=== PATIENT | male | born 1955 | race Caucasian/White ===

== ENCOUNTER 2016-07-16 13:45 | Inpatient (IN) | payer OTHER ==
[2016-07-16] MEDS ORDERED: SODIUM CHLORIDE 0.9% 1,000 ML IV ONE (14:56)
[2016-07-16 15:04] LABS: Basophils # (A) 0.1 k/uL (0-0.2); Basophils % (A) 1 %; CH 31.9; CHCM 33.3; Eosinophils # (A) 0.1 k/uL (0-0.7); Eosinophils % (A) 1 %; HCT 41.6 % (39.0-53.0); HDW 3.09; HGB 13.5 gm/dL (13.0-17.5); Luc # (Auto) 0.09; Luc % (Auto) 1; Lymphocytes # (A) 0.8 k/uL (1.0-4.8); Lymphocytes % (A) 10 %; MCH 31.4 pg (25.0-35.0); MCHC 32.6 g/dL (31.0-37.0); MCV 96.3 fL (80.0-100.0); Mean Platelet Volume 6.9; Monocytes # (A) 0.5 k/uL (0-1.0); Monocytes % (A) 6 %; Neutrophils # (A) 6.8 k/uL (1.3-7.7); Neutrophils % (A) 81 %; RBC 4.32 m/uL (4.30-5.90); RDW 15.1 % (11.5-15.5); WBC 8.4 k/uL (3.8-10.6)
[2016-07-16 15:16] LABS: ALT 21 U/L (21-72); AST 20 U/L (17-59); Alkaline Phosphatase 58 U/L (38-126); Anion Gap 15 mmol/L; Blood Urea Nitrogen 34 mg/dL (9-20); Calcium 9.1 mg/dL (8.4-10.2); Carbon Dioxide 28 mmol/L (22-30); Chloride 103 mmol/L (98-107); Glucose 113 mg/dL (74-99); Non-African American GFR(MDRD) >60 (>60 ml/min/1.73 sqM); Potassium 3.6 mmol/L (3.5-5.1); Sodium 146 mmol/L (137-145); Total Bilirubin 0.5 mg/dL (0.2-1.3)
--- NOTE | 2016-07-16 15:32 | XR ---
EXAMINATION TYPE: XR chest 2V DATE OF EXAM: 07/16/2016 3:28 PM COMPARISON: 10/22/2009 HISTORY: Seizure. Unresponsive. TECHNIQUE: Frontal and lateral views of the chest are obtained. FINDINGS: There is patchy consolidation in the left lower lobe. There is no heart failure. Heart siz e is fairly normal. There is apparent ventriculoperitoneal shunt catheter. There is small left pleura l effusion. Right lung is clear. IMPRESSION: There is new patchy left lower lobe pneumonia and pleural fluid compared to last exam.
[2016-07-16 15:39] LABS: Appearance,Urine Cloudy (Clear); Bacteria,Urine Moderate /hpf; Bilirubin,Urine Negative (Negative); Glucose,Urine (UA) Negative (Negative); Ketones,Urine Negative (Negative); Leukocyte Esterase,Urine Large (Negative); Mucus,Urine Rare /hpf; Nitrite,Urine Positive (Negative); Particle Count 28484; Protein,Urine 1+ (Negative); RBC,Urine 8 /hpf (0-5); Specific Gravity,Urine 1.012 (1.001-1.035); Squamous Epithelial Cell,Urine <1 /hpf (0-4); UA Billing (MACRO vs. MICRO) MICRO; Urobilinogen,Urine <2.0 mg/dL (<2.0); WBC,Urine 102 /hpf (0-5)
--- NOTE | 2016-07-16 15:52 | ED ---
General Adult HPI - General Chief complaint: Seizure Stated complaint: seizure Source: old records reviewed Mode of arrival: EMS - History of Present Illness Initial comments: 61-year-old male with past medical history of CVA/TIA, HLD, HTN, memory impairment, seizure disorder (on depakote & topiramate), hydrocephalus with shunt, left-sided weakness, presenting via EMS for seizure. Patient is a resident of [facility] and had a witnessed seizure that lasted about 20 mins on and off per staff. EMS arrived, pt was still seizing and gave the pt 10 mg Versed and upon arrival the pt was sleeping with snoring respirations but maintaining his airway when sitting up. - Related Data Home Medications Medication Instructions Recorded Confirmed Fluticasone Nasal [place] [Flonase 1 spray EA NOSTRIL HS 08/21/14 07/16/16 Nasal [place]] Glycerin/Propylene Glycol 1 drop BOTH EYES BID PRN 08/21/14 07/16/16 [Artificial Tears Drops] Hydrochlorothiazide 25 mg PO DAILY 08/21/14 07/16/16 Hydrocodone/Acetaminophen 1 tab PO Q6H PRN 08/21/14 07/16/16 [Hydrocodon-Acetaminophn 10-325] [place]-3 Fatty Acids [[place]-3] 1,000 mg PO BID 08/21/14 07/16/16 Pravastatin Sodium 40 mg PO HS 08/21/14 07/16/16 Sennosides-Docusate Sodium 2 tab PO DAILY PRN 08/21/14 07/16/16 [Senokot-S] Terazosin [Hytrin] 1 mg PO HS 08/21/14 07/16/16 Allopurinol [Zyloprim] 300 mg PO DAILY 07/16/16 07/16/16 Divalproex Sodium [Depakote 500 mg PO DAILY 07/16/16 07/16/16 Sprinkle] Divalproex Sprinkle [Depakote 375 mg PO HS 07/16/16 07/16/16 Sprinkle] HYDROcodone/APAP 10-325MG [[place] 1 tab PO BID@0900,2100 07/16/16 07/16/16 10-325] Magnesium Hydroxide [Milk of 2,400 mg PO DAILY PRN 07/16/16 07/16/16 Magnesia] Metoprolol Tartrate [Lopressor] 12.5 mg PO BID 07/16/16 07/16/16 PARoxetine [Paxil] 20 mg PO DAILY 07/16/16 07/16/16 Rivastigmine Tartrate [Exelon] 3 mg PO BID 07/16/16 07/16/16 Tolnaftate [Tinactin] 1 applic TOPICAL HS 07/16/16 07/16/16 Topiramate [Topamax] 25 mg PO BID 07/16/16 07/16/16 Allergies Allergy/AdvReac Type Severity Reaction Status Date / Time No Known Allergies Allergy Verified 07/16/16 13:55 Review of Systems ROS Statement: Those systems with pertinent positive or pertinent negative responses have been documented in the HPI. ROS Other: All systems not noted in ROS Statement are negative. Constitutional: Denies: fever, chills, weakness Eyes: Denies: eye pain, eye discharge, vision change ENT: Denies: ear pain, throat pain Respiratory: Denies: cough, dyspnea Cardiovascular: Denies: chest pain, palpitations Endocrine: Denies: fatigue, polydipsia, polyuria Gastrointestinal: Denies: abdominal pain, nausea, vomiting, diarrhea, constipation Genitourinary: Denies: urgency, dysuria, frequency, hematuria, discharge Musculoskeletal: Denies: back pain, arthralgia, myalgia Skin: Denies: rash, lesions Neurological: Reports: other (seizures). Denies: headache, weakness, numbness, paresthesias Psychiatric: Denies: anxiety, depression Hematological/Lymphatic: Denies: easy bleeding, easy bruising Past Medical History Past Medical History: CVA/TIA, Hyperlipidemia, Hypertension, Memory Impairment, Seizure Disorder Additional Past Medical History / Comment(s): hydrocephalus with shunt, focal seizure, left sided weakness History of Any Multi-Drug Resistant Organisms: None Reported Past Surgical History: No Surgical Hx Reported Past Anesthesia/Blood Transfusion Reactions: Unable to Obtain Past Psychological History: Anxiety, Bipolar Smoking Status: Unknown if ever smoked Past Alcohol Use History: None Reported Past Drug Use History: None Reported General Exam General appearance: in no apparent distress, obese, other (sleeping) Head exam: Present: atraumatic, normocephalic, normal inspection Eye exam: Present: normal appearance, PERRL, EOMI. Absent: scleral icterus, conjunctival injection, periorbital swelling ENT exam: Present: normal exam, mucous membranes moist Neck exam: Present: normal inspection. Absent: tenderness, meningismus, lymphadenopathy Respiratory exam: Present: normal lung sounds bilaterally. Absent: respiratory distress, wheezes, rales, rhonchi, stridor Cardiovascular Exam: Present: regular rate, normal rhythm, normal heart sounds. Absent: systolic murmur, diastolic murmur, rubs, gallop, clicks GI/Abdominal exam: Present: soft, normal bowel sounds. Absent: distended, tenderness, guarding, rebound, rigid Rectal exam: Present: deferred Extremities exam: Present: normal inspection, full ROM, normal capillary refill. Absent: tenderness, pedal edema, joint swelling, calf tenderness Back exam: Present: normal inspection Neurological exam: Present: other (pt unresponsive but maintaining airway) Psychiatric exam: Present: normal affect, normal mood Skin exam: Present: warm, dry, intact, normal color. Absent: rash Course Vital Signs 07/16/16 07/16/16 07/16/16 13:48 15:30 16:56 Temperature 99 F 97.9 F Pulse Rate 93 65 82 Pulse Rate [ Panel Assembler ] Respiratory 16 18 16 Rate Blood Pressure 113/70 132/72 131/69 Blood Pressure [Right Arm] O2 Sat by Pulse 94 L 94 L Oximetry 07/16/16 07/16/16 07/16/16 17:47 18:00 18:16 Temperature 94.2 F L Pulse Rate 86 96 Pulse Rate [ 60 Panel Assembler ] Respiratory 25 H 14 14 Rate Blood Pressure 124/70 162/96 Blood Pressure 120/72 [Right Arm] O2 Sat by Pulse 82 L 94 L Oximetry 07/16/16 07/16/16 07/16/16 18:30 18:45 19:00 Temperature 97.4 F L Pulse Rate 92 70 72 Pulse Rate [ Panel Assembler ] Respiratory 16 16 16 Rate Blood Pressure 153/89 109/71 123/72 Blood Pressure [Right Arm] O2 Sat by Pulse 100 100 100 Oximetry 07/16/16 07/16/16 19:13 19:41 Temperature Pulse Rate 72 63 Pulse Rate [ Panel Assembler ] Respiratory 16 20 Rate Blood Pressure 113/69 102/56 Blood Pressure [Right Arm] O2 Sat by Pulse 100 100 Oximetry EKG Findings - EKG Comments: EKG Findings:: Sinus rhythm with PVCs, LAD, and nonspecific intraventricular block. Ventricular rate 93, LAURA 196, QRS 134, QT/QTC 394/489. EKG similar to previous. Procedures - Intubation Paralytic: Succinylcholine Laryngoscope: Benjamin Size: 4 Assist Device Used: other (gliding scope) ET Tube Size: 8 ET Tube Uncuffed: No Tube Secured Depth (cm): 22 Tube Secured Location: lips Tube Placement Confirmation: visualized tube passing through cords, equal breath sounds bilaterally, no breath sounds over epigastrium, confirmation by capnometry Patient Tolerated Procedure: well Intubation Complications: difficult intubation Additional Comments: confirmed with chest x-ray Medical Decision Making - Medical Decision Making 61-year-old male with past medical history of CVA/TIA, seizures on Depakote and Topamax and worsening dementia presented for evaluation of breakthrough seizure. The home where he is staying states that he had a seizure for about 5 minutes it resolved and then he had another one for 5 minutes which also resolved and he sees until EMS arrived. EMS provided 10 mg of Versed with resolution of seizure and the patient has been sleeping since. On physical examination the patient is unable to be woken up although is maintaining his airway with an oxygen saturation around 90% on 2 L oxygen. No other abnormalities on physical exam are noted. This is likely a breakthrough seizure and will obtain labs, ekg, cxr, ua. Will also provide IVF and continue to try waking the pt. Labs significant for urinary tract infection and will treat with a first dose of Rocephin here in the ED. Depakote levels within normal limits. There is a mildly elevated troponin although this is likely due to the seizure activity and we'll continue to trend. No intervention indicated at this time. The patient continues to be nonresponsive and continues to maintain his airway. We' ll obtain CT head to rule out any other etiology. This is still likely the postictal phase and also the result of 10 mg Versed. Discussed the case with Dr. Banda who accepted the admission without any further request. Admission order placed and bed request submitted. 6:37 PM patient became hypoxic to roughly 80% on nasal cannula. Nonrebreather was applied without any increase in oxygen saturation and the patient was moved to room 19 for sedation and intubation. Intubation required multiple attempts but was successful. We'll confirm with chest x-ray and placed patient in restraints, apply Cid, maintain sedation with propofol. Discussed the patient with Dr. Banda who agreed with plan to consult Dr. Watters who accepted consult with request to start vanco and zosyn. Admission order replaced and orders placed. 7:09 PM ETT placement confirmed. - Lab Data Result diagrams: 07/16/16 14:57 07/16/16 14:57 Lab Results 07/16/16 07/16/16 07/16/16 Range/Units 14:57 14:57 14:57 WBC 8.4 (3.8-10.6) k/uL RBC 4.32 (4.30-5.90) m/uL Hgb 13.5 (13.0-17.5) gm/dL Hct 41.6 (39.0-53.0) % MCV 96.3 (80.0-100.0) fL MCH 31.4 (25.0-35.0) pg MCHC 32.6 (31.0-37.0) g/dL RDW 15.1 (11.5-15.5) % Plt Count 133 L D (150-450) k/uL Neutrophils % 81 % Lymphocytes % 10 % Monocytes % 6 % Eosinophils % 1 % Basophils % 1 % Neutrophils # 6.8 (1.3-7.7) k/uL Lymphocytes # 0.8 L (1.0-4.8) k/uL Monocytes # 0.5 (0-1.0) k/uL Eosinophils # 0.1 (0-0.7) k/uL Basophils # 0.1 (0-0.2) k/uL Sodium 146 H (137-145) mmol/L Potassium 3.6 (3.5-5.1) mmol/L Chloride 103 (98-107) mmol/L Carbon Dioxide 28 (22-30) mmol/L Anion Gap 15 mmol/L BUN 34 H (9-20) mg/dL Creatinine 1.00 (0.66-1.25) mg/dL Est GFR (MDRD) Af Amer >60 (>60 ml/min/1.73 sqM) Est GFR (MDRD) Non-Af >60 (>60 ml/min/1.73 sqM) Glucose 113 H (74-99) mg/dL Calcium 9.1 (8.4-10.2) mg/dL Magnesium 1.8 (1.6-2.3) mg/dL Total Bilirubin 0.5 (0.2-1.3) mg/dL AST 20 (17-59) U/L ALT 21 (21-72) U/L Alkaline Phosphatase 58 (38-126) U/L Troponin I (0.000-0.034) ng/mL NT-Pro-B Natriuret Pep pg/mL Total Protein 8.0 (6.3-8.2) g/dL Albumin 4.2 (3.5-5.0) g/dL Lipase 161 (23-300) U/L Urine Color Urine Appearance (Clear) Urine pH (5.0-8.0) Ur Specific [place] (1.001-1.035) Urine Protein (Negative) Urine Glucose (UA) (Negative) Urine Ketones (Negative) Urine Blood (Negative) Urine Nitrite (Negative) Urine Bilirubin (Negative) Urine Urobilinogen (<2.0) mg/dL Ur Leukocyte Esterase (Negative) Urine RBC (0-5) /hpf Urine WBC (0-5) /hpf Urine WBC Clumps (None) /hpf Ur Squamous Epith Cells (0-4) /hpf Urine Bacteria (None) /hpf Hyaline Casts (0-2) /lpf Urine Mucus (None) /hpf Urine Yeast (Budding) (None) /hpf Valproic Acid 56.4 ug/mL 07/16/16 07/16/16 07/16/16 Range/Units 15:00 15:00 15:13 WBC (3.8-10.6) k/uL RBC (4.30-5.90) m/uL Hgb (13.0-17.5) gm/dL Hct (39.0-53.0) % MCV (80.0-100.0) fL MCH (25.0-35.0) pg MCHC (31.0-37.0) g/dL RDW (11.5-15.5) % Plt Count (150-450) k/uL Neutrophils % % Lymphocytes % % Monocytes % % Eosinophils % % Basophils % % Neutrophils # (1.3-7.7) k/uL Lymphocytes # (1.0-4.8) k/uL Monocytes # (0-1.0) k/uL Eosinophils # (0-0.7) k/uL Basophils # (0-0.2) k/uL Sodium (137-145) mmol/L Potassium (3.5-5.1) mmol/L Chloride (98-107) mmol/L Carbon Dioxide (22-30) mmol/L Anion Gap mmol/L BUN (9-20) mg/dL Creatinine (0.66-1.25) mg/dL Est GFR (MDRD) Af Amer (>60 ml/min/1.73 sqM) Est GFR (MDRD) Non-Af (>60 ml/min/1.73 sqM) Glucose (74-99) mg/dL Calcium (8.4-10.2) mg/dL Magnesium (1.6-2.3) mg/dL Total Bilirubin (0.2-1.3) mg/dL AST (17-59) U/L ALT (21-72) U/L Alkaline Phosphatase (38-126) U/L Troponin I 0.047 H* (0.000-0.034) ng/mL NT-Pro-B Natriuret Pep 1200 pg/mL Total Protein (6.3-8.2) g/dL Albumin (3.5-5.0) g/dL Lipase (23-300) U/L Urine Color Yellow Urine Appearance Cloudy (Clear) Urine pH 6.0 (5.0-8.0) Ur Specific [place] 1.012 (1.001-1.035) Urine Protein 1+ H (Negative) Urine Glucose (UA) Negative (Negative) Urine Ketones Negative (Negative) Urine Blood Small H (Negative) Urine Nitrite Positive (Negative) Urine Bilirubin Negative (Negative) Urine Urobilinogen <2.0 (<2.0) mg/dL Ur Leukocyte Esterase Large H (Negative) Urine RBC 8 H (0-5) /hpf Urine WBC 102 H (0-5) /hpf Urine WBC Clumps Few H (None) /hpf Ur Squamous Epith Cells <1 (0-4) /hpf Urine Bacteria Moderate H (None) /hpf Hyaline Casts 1 (0-2) /lpf Urine Mucus Rare H (None) /hpf Urine Yeast (Budding) Occasional H (None) /hpf Valproic Acid ug/mL Disposition Clinical Impression: Generalized seizure, UTI (urinary tract infection), Altered mental state Disposition: ADMITTED IP TO THIS [facility] Decision to Admit Reason: Admit from EC Decision Date: 07/16/16 Decision Time: 16:55
[2016-07-16] MEDS ORDERED: NALOXONE 0.4 MG/ML 1 ML VIAL IV PRN (16:57)
[2016-07-16] MEDS ORDERED: ONDANSETRON 4 MG/2 ML VIAL IVP PRN (16:57)
--- NOTE | 2016-07-16 16:59 | CT ---
EXAMINATION TYPE: CT brain wo con DATE OF EXAM: 07/16/2016 4:54 PM COMPARISON: 08/20/2014 HISTORY: Seizure today. Unresponsive. CT DLP: 1126.5 mGycm Automated exposure control for dose reduction was used. FINDINGS: There is some cerebral cortical atrophy. There is no mass effect nor midline shift. There is no sign of intracranial hemorrhage. There is a ventricular shunt catheter with the tip in the left lateral ve ntricle. There is patchy hypodensity in the periventricular white matter. There is no hydrocephalus. The calvarium is intact. IMPRESSION: Cerebral atrophy and chronic small vessel ischemia. No change compared to old exam. No acute abnormal ity. Previous craniotomies.
[2016-07-16] MEDS ORDERED: HYDROcodone/APAP 10-325MG 1 EACH TAB PO PRN (17:03)
[2016-07-16] MEDS ORDERED: MAGNESIUM HYDROXIDE 2,400 MG/10 ML CUP PO PRN (17:03)
[2016-07-16] MEDS ORDERED: SENNOSIDES-DOCUSATE SODIUM 1 EACH TAB PO PRN (17:03)
[2016-07-16] MEDS ORDERED: ARTIFICIAL TEARS-HYPROMELLOSE DROPS 15 ML BTL BOTH EYES PRN (17:03)
[2016-07-16] MEDS: SODIUM CHLORIDE 0.9% 1,000 ML IV SCH (17:30)
[2016-07-16] MEDS ORDERED: SUCCINYLCHOLINE CHLORIDE VIAL 200 MG/10 ML VIAL IV STA (18:15)
[2016-07-16] MEDS: PROPOFOL 500 MG in EMPTY BAG 1 BAG IV SCH ×3 (18:18→23:44)
[2016-07-16] MEDS ORDERED: IV VANCOMYCIN PER PHARMACY 1 EACH MISC MISCELLANE PRN (18:39)
--- NOTE | 2016-07-16 18:52 | XR ---
EXAMINATION TYPE: XR chest 1V portable DATE OF EXAM: 07/16/2016 6:47 PM COMPARISON: 07/16/2016 at 3:30 PM HISTORY: Check tube placement TECHNIQUE: Single frontal view of the chest is obtained. FINDINGS: Endotracheal tube is in good position. There is a nasogastric tube. There is a right jugul ar catheter with the tip probably in the right atrium. There is no pneumothorax. There is some patchy infiltrate in the left lower lobe. IMPRESSION: Tubing appears in good position. Left lower lobe infiltrate is unchanged compared to rec ent exam.
[2016-07-16] MEDS ORDERED: VANCOMYCIN 1,750 MG in SODIUM CHLORIDE 0.9% 250 ML IVPB ONE (20:30)
[2016-07-16] MEDS ORDERED: EMPTY BAG 1 BAG ONE (20:48)
[2016-07-16 20:51] LABS: Glucose,Whole Blood 138 mg/dL (75-99)
[2016-07-16] MEDS ORDERED: TOPIRAMATE 25 MG TAB PO SCH (21:00)
[2016-07-16] MEDS ORDERED: NON-FORMULARY DRUG (Omega-3 Fatty Acids [Omega-3] 1,000 MG) PO SCH (21:00)
[2016-07-16] MEDS ORDERED: DIVALPROEX SPRINKLE 125 MG CAP.SPRINK PO SCH (21:00)
[2016-07-16] MEDS ORDERED: IPRATROPIUM-ALBUTEROL 3 ML NEB INHALATION PRN (21:48)
[2016-07-16] MEDS ORDERED: HYDROmorphone 1 MG/ML 1 ML SYRINGE IVP PRN (21:48)
[2016-07-16 22:00] LABS: ABG PCO2 40 mmHg (35-45); ABG PH 7.38 (7.35-7.45)
[2016-07-16 22:01] LABS: ABG Base Excess -1.6 mmol/L; ABG HCO3 23 mmol/L (21-25); ABG PO2 130 mmHg (83-108); ABG TCO2 24 mmol/L (19-24)
[2016-07-16] MEDS ORDERED: VALPROATE SODIUM 500 MG in SODIUM CHLORIDE 0.9% 50 ML IVPB STA (22:04)
[2016-07-16] MEDS: EMPTY BAG 1 BAG ONE (22:11)
[2016-07-16] MEDS: CLOTRIMAZOLE 1% CREAM 15 GM TUBE TOPICAL SCH (22:12)
[2016-07-16] MEDS: FLUTICASONE 50MCG/SPRAY NASAL 16GM EA NOSTRIL SCH (22:13)
[2016-07-16] MEDS: HYDROcodone/APAP 10-325MG 1 EACH TAB PO SCH (22:13)
[2016-07-16] MEDS: DONEPEZIL 10 MG TAB PO SCH (22:13)
[2016-07-16] MEDS: PRAVASTATIN SODIUM 40 MG TAB PO SCH (22:14)
[2016-07-16] MEDS: TERAZOSIN 1 MG CAP PO SCH (22:14)
[2016-07-16] MEDS: METOPROLOL TARTRATE 12.5 MG TAB PO SCH (22:14)
[2016-07-16] MEDS ORDERED: Magnesium Replacement Protocol 1 EACH MISC MISCELLANE PRN (22:37)
[2016-07-16] MEDS ORDERED: Potassium Replacement Protocol 1 EACH MISC MISCELLANE PRN (22:37)
[2016-07-16] MEDS ORDERED: POTASSIUM CHLORIDE ORAL LIQUID 40 MEQ/30 ML CUP NG-TUBE SCH (23:00)
[2016-07-16] MEDS: MAGNESIUM SULFATE-D5W PMX 1 GM in DEXTROSE/WATER 1 100ML.BAG IVPB SCH ×2 (23:11→23:43)
[2016-07-16] MEDS: TOPIRAMATE 25 MG TAB PO SCH (23:11)
[2016-07-16] MEDS: HEPARIN SODIUM,PORCINE 5,000 UNIT/ML 1 ML VIAL SQ SCH (23:43)
[2016-07-16] MEDS: PIPERACILLIN-TAZOBACTAM 3.375 GM in DEXTROSE/WATER 1 50ML.BAG IVPB SCH (23:44)
[2016-07-17] MEDS: IPRATROPIUM-ALBUTEROL 3 ML NEB INHALATION SCH ×7 (00:15→23:27)
[2016-07-17] MEDS ORDERED: EMPTY BAG 1 BAG ONE ×3 (02:12→09:08)
[2016-07-17] MEDS: PROPOFOL 500 MG in EMPTY BAG 1 BAG IV SCH ×6 (02:20→21:45)
[2016-07-17] MEDS: SODIUM CHLORIDE 0.9% 1,000 ML IV SCH ×3 (03:42→23:33)
[2016-07-17 05:37] LABS: Basophils % (A) 0 %; CH 31.9; CHCM 32.4; Eosinophils # (A) 0.1 k/uL (0-0.7); Eosinophils % (A) 1 %; HCT 37.9 % (39.0-53.0); HDW 2.88; HGB 12.1 gm/dL (13.0-17.5); Luc # (Auto) 0.12; Luc % (Auto) 1; Lymphocytes # (A) 0.7 k/uL (1.0-4.8); Lymphocytes % (A) 8 %; MCH 31.6 pg (25.0-35.0); MCHC 31.9 g/dL (31.0-37.0); MCV 99.1 fL (80.0-100.0); Macrocytosis Slight; Mean Platelet Volume 6.9; Monocytes # (A) 0.7 k/uL (0-1.0); Monocytes % (A) 8 %; Neutrophils # (A) 7.5 k/uL (1.3-7.7); Neutrophils % (A) 82 %; RBC 3.83 m/uL (4.30-5.90); RDW 15.5 % (11.5-15.5); WBC 9.1 k/uL (3.8-10.6); WBC (Perox) 8.92
[2016-07-17 05:46] LABS: ABG Base Excess -1.4 mmol/L; ABG HCO3 21 mmol/L (21-25); ABG PCO2 27 mmHg (35-45); ABG PO2 97 mmHg (83-108); ABG TCO2 22 mmol/L (19-24)
[2016-07-17 05:52] LABS: Anion Gap 12 mmol/L; Blood Urea Nitrogen 29 mg/dL (9-20); Calcium 8.5 mg/dL (8.4-10.2); Carbon Dioxide 23 mmol/L (22-30); Chloride 107 mmol/L (98-107); Glucose 107 mg/dL (74-99); Magnesium 2.2 mg/dL (1.6-2.3); Non-African American GFR(MDRD) >60 (>60 ml/min/1.73 sqM); Phosphorous 1.7 mg/dL (2.5-4.5); Potassium 3.7 mmol/L (3.5-5.1); Sodium 142 mmol/L (137-145)
[2016-07-17] MEDS: VANCOMYCIN 1,500 MG in SODIUM CHLORIDE 0.9% 250 ML IVPB SCH ×2 (06:15→17:11)
[2016-07-17] MEDS ORDERED: Phosphorus Replacement Protoco 1 EACH MISC MISCELLANE PRN (06:50)
[2016-07-17] MEDS ORDERED: Potassium Replacement Protocol 1 EACH MISC MISCELLANE PRN (06:52)
[2016-07-17] MEDS ORDERED: POTASSIUM CHLORIDE ORAL LIQUID 40 MEQ/30 ML CUP NG-TUBE SCH ×2 (07:00→15:00)
[2016-07-17] MEDS: SODIUM PHOSPHATE 10 MMOL in SODIUM CHLORIDE 0.9% 250 ML IVPB SCH ×2 (08:04→10:31)
[2016-07-17] MEDS: HEPARIN SODIUM,PORCINE 5,000 UNIT/ML 1 ML VIAL SQ SCH ×3 (08:10→23:33)
[2016-07-17] MEDS: CHLORHEXIDINE GLUCONATE 15 ML CUP MUCOUS MEM SCH ×2 (08:11→21:23)
[2016-07-17] MEDS: PIPERACILLIN-TAZOBACTAM 3.375 GM in DEXTROSE/WATER 1 50ML.BAG IVPB SCH ×3 (08:11→23:34)
--- NOTE | 2016-07-17 08:12 | XR ---
EXAMINATION TYPE: XR chest 1V portable DATE OF EXAM: 07/17/2016 7:15 AM COMPARISON: 07/16/2016 HISTORY: Tube placement. TECHNIQUE: Single frontal view of the chest is obtained. FINDINGS: ET and NG tube stable. ET tube approximately 6.3 cm above [place]. TEASELER shunt catheter sugges kishor. Persistent left lower lobe infiltrate and small effusion stable. No pneumothorax. Right perihila r subsegmental consolidation improved. Arthropathy of the shoulders. IMPRESSION: 1. Left lower lobe infiltrate and small effusion stable.
[2016-07-17] MEDS ORDERED: DIVALPROEX SPRINKLE 125 MG CAP.SPRINK PO SCH (09:00)
[2016-07-17] MEDS: VALPROATE SODIUM 500 MG in SODIUM CHLORIDE 0.9% 50 ML IVPB SCH ×2 (09:20→21:29)
[2016-07-17] MEDS: METOPROLOL TARTRATE 12.5 MG TAB PO SCH ×2 (09:20→21:23)
[2016-07-17] MEDS: PANTOPRAZOLE 40 MG/10 ML VIAL IV SCH (09:20)
[2016-07-17] MEDS: PARoxetine 20 MG TAB PO SCH (09:21)
[2016-07-17] MEDS: ALLOPURINOL 300 MG TAB PO SCH (09:21)
[2016-07-17] MEDS: TOPIRAMATE 25 MG TAB PO SCH ×2 (09:21→21:24)
[2016-07-17] MEDS: HYDROCHLOROTHIAZIDE 25 MG TAB PO SCH (09:21)
[2016-07-17] MEDS: HYDROcodone/APAP 10-325MG 1 EACH TAB PO SCH ×2 (09:29→21:30)
--- NOTE | 2016-07-17 13:05 | P.CNPUL ---
History of Present Illness Consult date: 07/17/16 Requesting physician: Sedrick Banda Reason for consult: other (ICU management) History of present illness: This is a 61-year-old male patient being evaluated and examined today in the intensive care unit. This patient is a resident of [facility] and he had a witnessed seizure that lasted about 20 minutes on and off per the [facility] staff. When EMS arrived the patient was still seizing and they gave the patient 10 mg of Versed. Upon arrival to the emergency room and patient was sleeping with snoring respirations but was able to maintain his airway when sitting up. The patient's oxygen saturations were maintained around 90% on 2 L. The patient's further became apneic a few hours later while in the emergency room and was roughly in the low 80s on nasal cannula. In nonrebreather mask was applied to the patient and there was no change in oxygen saturation therefore the patient was sedated and intubated. The patient was a difficult intubation as well as a difficult Cid insertion. Upon examination today the patient is resting in bed on 10 mics of propofol for sedation and is in sync with mechanical ventilation. The patient is able to follow commands and can make eye contact. The patient is able to move his left side however its week. The patient is unable to move his right arm completely. The patient can move his right knee however cannot wiggle his right toes. Patient did have a CT of the brain which had no acute abnormalities however did show his previous craniotomies. According to the patient's son and daughter he previously was able to move both upper extremities and both lower extremities. Currently the patient is on mechanical ventilation on assist mode with a rate of 20 pedal volume of 550 FiO2 70% and a PEEP of 5. Review of Systems Review of systems cannot be completed at this time due to patient being on mechanical ventilation with propofol for sedation. Past Medical History Past Medical History: CVA/TIA, Hyperlipidemia, Hypertension, Memory Impairment, Seizure Disorder Additional Past Medical History / Comment(s): hydrocephalus with shunt, focal seizure, left sided weakness History of Any Multi-Drug Resistant Organisms: None Reported Past Surgical History: No Surgical Hx Reported Additional Past Surgical History / Comment(s): shunt placement Past Anesthesia/Blood Transfusion Reactions: Unable to Obtain Past Psychological History: Anxiety, Bipolar Smoking Status: Unknown if ever smoked Past Alcohol Use History: None Reported Past Drug Use History: None Reported Medications and Allergies Home Medications Medication Instructions Recorded Confirmed Type Fluticasone Nasal [place] [Flonase 1 spray EA NOSTRIL HS 08/21/14 07/16/16 History Nasal [place]] Glycerin/Propylene Glycol 1 drop BOTH EYES BID PRN 08/21/14 07/16/16 History [Artificial Tears Drops] Hydrochlorothiazide 25 mg PO DAILY 08/21/14 07/16/16 History Hydrocodone/Acetaminophen 1 tab PO Q6H PRN 08/21/14 07/16/16 History [Hydrocodon-Acetaminophn 10-325] [place]-3 Fatty Acids [[place]-3] 1,000 mg PO BID 08/21/14 07/16/16 History Pravastatin Sodium 40 mg PO HS 08/21/14 07/16/16 History Sennosides-Docusate Sodium 2 tab PO DAILY PRN 08/21/14 07/16/16 History [Senokot-S] Terazosin [Hytrin] 1 mg PO HS 08/21/14 07/16/16 History Allopurinol [Zyloprim] 300 mg PO DAILY 07/16/16 07/16/16 History Divalproex Sodium [Depakote 500 mg PO DAILY 07/16/16 07/16/16 History Sprinkle] Divalproex Sprinkle [Depakote 375 mg PO HS 07/16/16 07/16/16 History Sprinkle] HYDROcodone/APAP 10-325MG [[place] 1 tab PO BID@0900,2100 07/16/16 07/16/16 History 10-325] Magnesium Hydroxide [Milk of 2,400 mg PO DAILY PRN 07/16/16 07/16/16 History Magnesia] Metoprolol Tartrate [Lopressor] 12.5 mg PO BID 07/16/16 07/16/16 History PARoxetine [Paxil] 20 mg PO DAILY 07/16/16 07/16/16 History Rivastigmine Tartrate [Exelon] 3 mg PO BID 07/16/16 07/16/16 History Tolnaftate [Tinactin] 1 applic TOPICAL HS 07/16/16 07/16/16 History Topiramate [Topamax] 25 mg PO BID 07/16/16 07/16/16 History Allergies Allergy/AdvReac Type Severity Reaction Status Date / Time No Known Allergies Allergy Verified 07/16/16 13:55 Physical Exam Vitals: Vital Signs Temp Pulse Pulse Resp BP BP Pulse Ox 07/17/16 12:39 60 07/17/16 12:00 98.4 F 59 L 19 99/49 99 07/17/16 11:30 58 L 20 93/53 98 07/17/16 11:00 58 L 19 89/49 98 07/17/16 10:30 59 L 20 98/50 100 07/17/16 10:00 65 20 96/53 100 07/17/16 09:30 63 19 105/48 100 07/17/16 09:00 66 20 103/47 100 07/17/16 08:30 67 20 98/45 99 07/17/16 08:24 67 07/17/16 08:15 65 07/17/16 08:00 100.5 F H 62 19 100/44 100 07/17/16 07:30 62 19 98/49 100 07/17/16 07:00 64 20 112/56 100 07/17/16 06:30 64 19 101/49 100 07/17/16 06:00 63 20 105/51 100 07/17/16 05:30 64 20 98/47 100 07/17/16 05:00 65 21 97/48 99 07/17/16 04:30 71 20 103/50 98 07/17/16 04:00 99.1 F 65 60 20 99/52 98 07/17/16 03:30 62 20 103/56 100 07/17/16 03:28 61 07/17/16 03:17 64 07/17/16 03:00 61 20 98/54 100 07/17/16 02:30 59 L 20 96/52 99 07/17/16 02:00 63 20 107/57 100 07/17/16 01:30 59 L 20 106/58 100 07/17/16 01:00 63 20 87/64 100 07/17/16 00:38 60 07/17/16 00:30 59 L 20 112/64 100 07/17/16 00:20 59 L 07/17/16 00:00 100.2 F H 59 L 60 20 106/60 100 07/16/16 23:30 60 19 111/62 100 07/16/16 23:00 58 L 19 111/62 100 07/16/16 22:42 57 L 20 103/60 100 07/16/16 22:30 57 L 20 103/60 100 07/16/16 22:00 61 20 98/58 100 07/16/16 21:30 63 19 109/66 100 07/16/16 21:25 60 20 07/16/16 21:00 60 21 120/72 100 07/16/16 20:37 71 110/66 07/16/16 20:24 65 20 96/53 100 07/16/16 19:41 63 20 102/56 100 07/16/16 19:13 72 16 113/69 100 07/16/16 19:00 72 16 123/72 100 07/16/16 18:45 70 16 109/71 100 07/16/16 18:30 97.4 F L 92 16 153/89 100 07/16/16 18:16 96 14 162/96 94 L 07/16/16 18:00 86 14 124/70 82 L 07/16/16 17:47 94.2 F L 60 25 H 120/72 Intake and Output 07/16/16 07/17/16 07/17/16 22:59 06:59 14:59 Intake Total 597.934 0145.333 1246.0 Output Total 530 465 233 Balance -554.696 2083.333 1013.0 Intake: IV 200 800 520 Sodium Chloride 0.9% 1, 200 800 520 000 ml @ 100 mls/hr IV . Q10H [facility] Rx#:[id number] Intake, IV Titration 50.000 678.333 666.0 Amount Magnesium Sulfate-D5w Pmx 200 1 gm In Dextrose/Water 1 100ml.bag @ 100 mls/hr IVPB Q1H [facility] Rx#: [id number] Piperacillin-Tazobactam 3 50 50.0 .375 gm In Dextrose/Water 1 50ml.bag @ 12.5 mls/hr IVPB Q8HR [facility] Rx#: [id number] Propofol 500 mg In Empty 50.000 128.333 66 Bag 1 bag @ Titrate IV . Q0M [facility] Rx#:[id number] Sodium Phosphate 10 mmol 500 In Sodium Chloride 0.9% 250 ml @ 125 mls/hr IVPB Q2H [facility] Rx#:[id number] Valproate Sodium 500 mg 50 50 In Sodium Chloride 0.9% 50 ml @ 50 mls/hr IVPB Q12HR [facility] Rx#:[id number] Vancomycin 1,750 mg In 250 Sodium Chloride 0.9% 250 ml @ 125 mls/hr IVPB ONCE ONE Rx#:[id number] Other 60 Output: Urine 530 465 233 Other: Voiding Method Indwelling Catheter Indwelling Catheter Indwelling Catheter Weight 99.2 kg 99.2 kg GENERAL EXAM: Slightly sedated on propofol for mechanical ventilation, comfortable in no apparent distress. HEAD: Normocephalic. EYES: Normal reaction of pupils, equal size. NOSE: Clear with pink turbinates. THROAT: No erythema or exudates. NECK: No masses, no JVD. CHEST: No chest wall deformity. LUNGS: Equal air entry with no crackles, wheeze, rhonchi or dullness. Bases diminished CVS: S1 and S2 normal with no audible mumurs, regular rhythm. ABDOMEN: No hepatosplenomegaly, normal bowel sounds, no guarding or rigidity. EXTREMITIES: No edema noted, pedal pulses palpable. SKIN: No rashes CENTRAL NERVOUS SYSTEM: Patient on mechanical ventilation with propofol for sedation Results - Laboratory Findings CBC and BMP: 07/17/16 05:27 07/17/16 05:27 ABG ABG pH 7.50 (7.35-7.45) H 07/17/16 05:38 ABG pCO2 27 mmHg (35-45) L 07/17/16 05:38 ABG pO2 97 mmHg (83-108) 07/17/16 05:38 ABG O2 Saturation 98.0 % (94-97) H 07/17/16 05:38 Abnormal lab findings: Abnormal Labs 07/16/16 07/16/16 07/16/16 19:15 20:49 21:17 RBC Hgb Hct Plt Count Lymphocytes # ABG pH ABG pCO2 ABG pO2 130 H ABG O2 Saturation 99.0 H BUN Glucose POC Glucose (mg/dL) 138 H Phosphorus Troponin I 0.191 H* 07/17/16 07/17/16 07/17/16 05:27 05:27 05:27 RBC 3.83 L Hgb 12.1 L Hct 37.9 L Plt Count 117 L Lymphocytes # 0.7 L ABG pH ABG pCO2 ABG pO2 ABG O2 Saturation BUN 29 H Glucose 107 H POC Glucose (mg/dL) Phosphorus 1.7 L Troponin I 0.131 H* 07/17/16 05:38 RBC Hgb Hct Plt Count Lymphocytes # ABG pH 7.50 H ABG pCO2 27 L ABG pO2 ABG O2 Saturation 98.0 H BUN Glucose POC Glucose (mg/dL) Phosphorus Troponin I - Diagnostic Findings Chest x-ray: report reviewed, image reviewed Assessment and Plan Plan: Assessment Acute hypoxic respiratory failure Left lower lobe pneumonia suspect mixed bacterial Mental status changes Generalized seizures Urinary tract infection Elevated troponins, likely related to seizures. History of strokes with left-sided weakness History of seizures History of Hydrocephalus with shunt Plan Medications have been reviewed and will be continued as ordered. We will add Pulmicort to the current nebulizer treatments. IV antibiotics as ordered. Patient will be trialed with CPAP for weaning parameters. Continue with pulmonary hygiene, nebulizer treatments, and supportive care. Awaiting final cultures. Infectious disease on consult. Neurology on consult. GI and DVT prophylaxis. Patient should be started on tube feedings. Repeat labs and chest x-ray in the morning. Seizure precautions in place. We will continue to monitor labs/results and adjust treatment as necessary. I performed an examination of the patient and discussed their management with the nurse practitioner. I have reviewed the nurse practitioner's note and agree with the documented findings and plan of care.
[2016-07-17 13:12] LABS: Appearance,Urine Cloudy (Clear); Bacteria,Urine Moderate /hpf; Bilirubin,Urine Negative (Negative); Glucose,Urine (UA) Negative (Negative); Ketones,Urine Negative (Negative); Leukocyte Esterase,Urine Large (Negative); Mucus,Urine Rare /hpf; Nitrite,Urine Negative (Negative); PH, Urine 6.5 (5.0-8.0); Particle Count 2760; Protein,Urine Trace (Negative); RBC,Urine 13 /hpf (0-5); Specific Gravity,Urine 1.018 (1.001-1.035); Squamous Epithelial Cell,Urine <1 /hpf (0-4); UA Billing (MACRO vs. MICRO) MICRO; Urobilinogen,Urine <2.0 mg/dL (<2.0); WBC,Urine 41 /hpf (0-5)
[2016-07-17] MEDS: BUDESONIDE 1 MG/2 ML NEBU INHALATION SCH (20:22)
[2016-07-17] MEDS: DONEPEZIL 10 MG TAB PO SCH (21:23)
[2016-07-17] MEDS: FLUTICASONE 50MCG/SPRAY NASAL 16GM EA NOSTRIL SCH (21:23)
[2016-07-17] MEDS: CLOTRIMAZOLE 1% CREAM 15 GM TUBE TOPICAL SCH (21:24)
[2016-07-17] MEDS: PRAVASTATIN SODIUM 40 MG TAB PO SCH (21:24)
[2016-07-17] MEDS: TERAZOSIN 1 MG CAP PO SCH (21:24)
--- NOTE | 2016-07-17 22:33 | HP ---
DATE OF ADMISSION: 07/16/2016 CHIEF COMPLAINT: Grand mal seizure. HISTORY OF PRESENT ILLNESS: This is another admission for this 61-year-old white male from [facility]. He at bedtime been a half-way resident. 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 He has behavior issues, schizophrenia and seizures. He apparently had a prolonged seizure the morning of admission and was brought to the emergency room with respiratory depression and was admitted. He was intubated. REVIEW OF SYSTEMS: Not obtainable. Past medical history, family history and personal and histories are otherwise not obtainable or unavailable. PHYSICAL EXAMINATION: VITAL SIGNS: Blood pressure is 135/64 with a pulse of 88, respirations of 21. He is afebrile. GENERAL: Appeared to be stable on ventilator. HEENT: Head, ears, eyes, nose, mouth, and throat were normal except for being intubated. CHEST: Demonstrated breath sounds on both sides. Cardiac exam was normal sinus rhythm. ABDOMEN: Soft and there are no masses. EXTREMITIES: Normal. IMPRESSION: 1. Grand mal seizure. 2. ( ) depression. 3. Respiratory failure. 4. Schizophrenia. PLAN: 1. Respiratory support. 2. Seizure precautions. 3. Manage convulsive episodes or seizures.
[2016-07-17] MEDS ORDERED: ACETAMINOPHEN IV (For NPO) 1,000 MG in EMPTY BAG 1 BAG IVPB PRN (23:38)
[2016-07-18 00:51] LABS: ALT 25 U/L (21-72); AST 24 U/L (17-59); Alkaline Phosphatase 42 U/L (38-126); Anion Gap 9 mmol/L; Blood Urea Nitrogen 24 mg/dL (9-20); Calcium 8.2 mg/dL (8.4-10.2); Carbon Dioxide 21 mmol/L (22-30); Chloride 112 mmol/L (98-107); Glucose 101 mg/dL (74-99); Non-African American GFR(MDRD) >60 (>60 ml/min/1.73 sqM); Potassium 3.4 mmol/L (3.5-5.1); Sodium 142 mmol/L (137-145); Total Bilirubin 0.8 mg/dL (0.2-1.3); Total Protein 6.2 g/dL (6.3-8.2)
[2016-07-18 00:58] LABS: Basophils % (A) 0 %; CH 31.4; CHCM 32.7; Eosinophils % (A) 0 %; HCT 33.6 % (39.0-53.0); HDW 2.86; Luc # (Auto) 0.11; Luc % (Auto) 1; Lymphocytes # (A) 0.9 k/uL (1.0-4.8); Lymphocytes % (A) 11 %; MCH 31.5 pg (25.0-35.0); MCHC 32.6 g/dL (31.0-37.0); MCV 96.5 fL (80.0-100.0); Monocytes # (A) 0.7 k/uL (0-1.0); Monocytes % (A) 8 %; Neutrophils # (A) 6.4 k/uL (1.3-7.7); Neutrophils % (A) 80 %; RBC 3.48 m/uL (4.30-5.90); RDW 15.8 % (11.5-15.5); WBC 8.1 k/uL (3.8-10.6); WBC (Perox) 7.65
[2016-07-18] MEDS: POTASSIUM CHLORIDE ORAL LIQUID 40 MEQ/30 ML CUP NG-TUBE SCH ×2 (02:09→02:42)
[2016-07-18] MEDS: IPRATROPIUM-ALBUTEROL 3 ML NEB INHALATION SCH ×6 (02:10→23:56)
[2016-07-18] MEDS: PROPOFOL 500 MG in EMPTY BAG 1 BAG IV SCH ×2 (02:44→06:13)
[2016-07-18] MEDS: VANCOMYCIN 1,500 MG in SODIUM CHLORIDE 0.9% 250 ML IVPB SCH ×2 (06:12→17:50)
[2016-07-18 06:31] LABS: Basophils % (A) 0 %; CH 31.8; CHCM 33.6; Eosinophils % (A) 0 %; HCT 32.4 % (39.0-53.0); HDW 3.01; Luc # (Auto) 0.11; Luc % (Auto) 1; Lymphocytes # (A) 0.8 k/uL (1.0-4.8); Lymphocytes % (A) 10 %; MCH 32.3 pg (25.0-35.0); MCHC 33.9 g/dL (31.0-37.0); MCV 95.4 fL (80.0-100.0); Mean Platelet Volume 7.4; Monocytes # (A) 0.8 k/uL (0-1.0); Monocytes % (A) 9 %; Neutrophils # (A) 6.7 k/uL (1.3-7.7); Neutrophils % (A) 80 %; RDW 15.6 % (11.5-15.5); WBC 8.4 k/uL (3.8-10.6); WBC (Perox) 7.84
[2016-07-18 06:41] LABS: Anion Gap 11 mmol/L; Blood Urea Nitrogen 24 mg/dL (9-20); Calcium 8.3 mg/dL (8.4-10.2); Carbon Dioxide 19 mmol/L (22-30); Chloride 112 mmol/L (98-107); Glucose 99 mg/dL (74-99); Non-African American GFR(MDRD) >60 (>60 ml/min/1.73 sqM); Phosphorous 2.7 mg/dL (2.5-4.5); Potassium 3.7 mmol/L (3.5-5.1); Sodium 142 mmol/L (137-145)
[2016-07-18] MEDS: PIPERACILLIN-TAZOBACTAM 3.375 GM in DEXTROSE/WATER 1 50ML.BAG IVPB SCH ×2 (07:54→15:42)
[2016-07-18] MEDS ORDERED: POTASSIUM CHLORIDE ORAL LIQUID 40 MEQ/30 ML CUP NG-TUBE SCH (08:00)
[2016-07-18 08:03] LABS: Manual Review Performed
[2016-07-18] MEDS: BUDESONIDE 1 MG/2 ML NEBU INHALATION SCH ×2 (08:03→20:54)
--- NOTE | 2016-07-18 08:14 | PN ---
DATE OF SERVICE: 07/17/2016 CHIEF COMPLAINT: Grand mal seizure with postictal depression and respiratory failure. HISTORY OF PRESENT ILLNESS: There has been no interval change. Patient is on ventilator. He will be seen and followed by Neurology as well. PHYSICAL EXAM: Vital signs are normal right now. Breath sounds are heard in both sides. CARDIAC: Normal. ABDOMEN: Soft. IMPRESSION: 1. Prolonged grand mal seizure with postictal depression. 2. Acute respiratory failure. 3. Schizophrenia. 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 PLAN: Continue to follow while on the ventilator until he is stable enough to be extubated.
--- NOTE | 2016-07-18 08:29 | XR ---
EXAMINATION TYPE: XR chest 1V portable DATE OF EXAM: 07/18/2016 6:22 AM COMPARISON: 07/17/2016 HISTORY: Tube placement TECHNIQUE: Single frontal view of the chest is obtained. FINDINGS: ET and NG tube stable. ET tube approximately 6.3 cm above brooke. TERADATA DEVELOPER shunt catheter sugges kishor. Persistent left lower lobe infiltrate and small effusion stable. No pneumothorax. Right perihilar subsegmental consolidation stable. Arthropathy of the shoulders. IMPRESSION: 1. Left lower lobe infiltrate and small effusion stable.
[2016-07-18] MEDS: METOPROLOL TARTRATE 12.5 MG TAB PO SCH ×2 (08:44→21:09)
[2016-07-18] MEDS: HEPARIN SODIUM,PORCINE 5,000 UNIT/ML 1 ML VIAL SQ SCH ×2 (08:44→15:42)
[2016-07-18] MEDS: PANTOPRAZOLE 40 MG/10 ML VIAL IV SCH (08:44)
[2016-07-18] MEDS: CHLORHEXIDINE GLUCONATE 15 ML CUP MUCOUS MEM SCH (08:44)
[2016-07-18] MEDS: TOPIRAMATE 25 MG TAB PO SCH ×2 (08:44→21:09)
[2016-07-18] MEDS: HYDROCHLOROTHIAZIDE 25 MG TAB PO SCH (08:44)
[2016-07-18] MEDS: VALPROATE SODIUM 500 MG in SODIUM CHLORIDE 0.9% 50 ML IVPB SCH ×2 (08:44→21:11)
[2016-07-18] MEDS: SODIUM CHLORIDE 0.9% 1,000 ML IV SCH ×2 (08:45→21:11)
[2016-07-18] MEDS: ALLOPURINOL 300 MG TAB PO SCH (08:45)
[2016-07-18] MEDS: PARoxetine 20 MG TAB PO SCH (08:45)
[2016-07-18] MEDS: HYDROcodone/APAP 10-325MG 1 EACH TAB PO SCH ×2 (08:55→21:11)
[2016-07-18 09:40] LABS: ABG Base Excess -5.3 mmol/L; ABG HCO3 18 mmol/L (21-25); ABG Oxygen Saturation 98.5 % (94-97); ABG PCO2 28 mmHg (35-45); ABG PH 7.43 (7.35-7.45); ABG PO2 108 mmHg (83-108); ABG TCO2 19 mmol/L (19-24)
--- NOTE | 2016-07-18 09:50 | CONS ---
DATE OF CONSULTATION: 07/17/2016 CHIEF COMPLAINT: Status epilepticus. HISTORY OF PRESENT ILLNESS: Mr. Thakkar is a 61-year-old male who is being evaluated today on 07/17/2016 by the neurology service per the request of Dr. Banda for status epilepticus. The patient does have history of seizure disorder and is on Depakote 250 mg q.a.m. and 500 mg q.p.m. He is also on Topamax 50 mg b.i.d. 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 EMS was called due to seizure activity. When EMS arrived, the patient was still having a generalized tonic-clonic seizure. Overall, the seizure lasted approximately 20 minutes according to the nursing staff. He was given IV Versed 10 mg dose, which did stop his seizure. When he arrived to the emergency room, the patient was very drowsy due to both the postictal state and the Versed. In the emergency room, his respiratory rate and oxygenation worsened and he had to be intubated. The patient was admitted to the intensive care unit. A CT scan of the brain was done, which showed generalized atrophy and this was felt to be unchanged when compared to his 08/21/2015 study. His CBC showed mild anemia with a hemoglobin of 12.1 and thrombocytopenia at 117,000. His phosphorous level was very low at 1.7. His serum Depakote level was borderline therapeutic at 56.4. His urinalysis showed 41 WBCs with large leukocyte esterase. His cardiac enzymes which showed slightly elevated troponin I at 0.131. I did review his EEG from today, which was normal. At the time of my evaluation, he is still intubated in the intensive care unit but he is more awake and following some commands. PAST MEDICAL HISTORY: Hydrocephalus with BAG MACHINE HELPER shunt placement, stroke, hypertension, seizure disorder, dementia, depression, dyslipidemia, anxiety disorder, bipolar disorder. SOCIAL HISTORY: There is no history of any tobacco, alcohol or drug use. FAMILY HISTORY: Noncontributory. HOME MEDICATIONS: Reviewed in the chart. ALLERGIES: No known drug allergies. REVIEW OF SYSTEMS: Unable to obtain as the patient is intubated and drowsy. PHYSICAL EXAM: Vital signs show a temperature of 99.6, pulse 62, respirations 20, blood pressure 100/52. GENERAL APPEARANCE: The patient is a well-developed male who is intubated and appears to be in no acute distress. No seizure-like activity is seen. HEENT: The patient does have surgical changes seen in the midline parietal region. No obvious facial asymmetry is seen. Neck is supple with no masses felt. CARDIOVASCULAR: Regular rate and rhythm. ABDOMEN: Nontender, nondistended. EXTREMITIES: No edema or clubbing. NEUROLOGICAL EXAM: The patient is drowsy but arousable. He does make good eye contact. Extraocular muscles appeared to be intact as he does look to either side, but does not track appropriately. Pupils were equal and round. He does move all 4 extremities to command but appears to have generalized weakness. Sensory exam appears to be normal to light touch. No facial asymmetry is seen on cranial nerve testing. No seizure-like activity is seen. IMPRESSION: 1. Status epilepticus. 2. Respiratory failure secondary to Versed. 3. History of hydrocephalus. 4. Acute urinary tract infection. RECOMMENDATIONS: The patient did have a generalized tonic-clonic seizure lasting approximately 20 minutes consistent with a status epilepticus. He has not had any further seizure-like activity. He did develop respiratory failure, likely due to Versed therapy. The patient is more awake at this time and is being weaned off of the ventilator. His Depakote levels were borderline therapeutic and I will increase his maintenance dose to 500 mg b.i.d. I will likely also increase his Topamax dose on a follow-up visit. Otherwise, I did review his CT scan of the brain, which showed no changes from 2015. I do recommend continuing antibiotic therapy for his urinary tract infection. I will repeat a serum Depakote level in the morning. I did review his EEG, which showed no epileptiform discharges. Continue neuro checks. I will continue to follow with you. Further recommendations to follow. Thank you Dr. Banda, for allowing me to participate in the care of your patient. If you have any questions, please feel free to contact me.
--- NOTE | 2016-07-18 10:55 | P.PN ---
Subjective This is a 61-year-old male patient being evaluated and examined today in the intensive care unit. This patient is a resident of [facility] and he had a witnessed seizure that lasted about 20 minutes on and off per the [facility] staff. When EMS arrived the patient was still seizing and they gave the patient 10 mg of Versed. Upon arrival to the emergency room and patient was sleeping with snoring respirations but was able to maintain his airway when sitting up. The patient's oxygen saturations were maintained around 90% on 2 L. The patient's further became apneic a few hours later while in the emergency room and was roughly in the low 80s on nasal cannula. In nonrebreather mask was applied to the patient and there was no change in oxygen saturation therefore the patient was sedated and intubated. The patient was a difficult intubation as well as a difficult Cid insertion. Upon examination the patient is resting in bed currently on CPAP, patient is within appropriate weaning parameters and will be extubated. Patient's vital signs are stable and he is maintaining his oxygen saturations. Patient is able to follow commands and make eye contact he is also moving all 4 extremities. Patient will be extubated to 2 L via nasal cannula. Objective - Vital Signs Vital signs: Vital Signs Temp 100 F H 07/18/16 08:00 Pulse 73 07/18/16 10:00 Resp 20 07/18/16 10:00 BP 112/60 07/18/16 10:00 Pulse Ox 92 L 07/18/16 10:00 Intake & Output 07/17/16 07/18/16 07/18/16 18:59 06:59 18:59 Intake Total 2015.533 1988.295 540.907 Output Total 724 930 405 Balance 6763.270 9094.295 135.907 Weight 99.2 kg 102.3 kg Intake: IV 1090 1170 360 Sodium Chloride 0.9% 1, 1090 1170 360 000 ml @ 100 mls/hr IV . Q10H [facility] Rx#:[id number] Intake, IV Titration 865.533 638.295 90.907 Amount ACETAMINOPHEN IV (For NPO 100 ) 1,000 mg In Empty Bag 1 bag @ 400 mls/hr IVPB Q6HR [facility] Rx#:[id number] Piperacillin-Tazobactam 3 75.0 12.5 25.0 .375 gm In Dextrose/Water 1 50ml.bag @ 12.5 mls/hr IVPB Q8HR [facility] Rx#: [id number] Propofol 500 mg In Empty 79.833 Bag 1 bag @ Titrate IV . Q0M [facility] Rx#:[id number] Propofol 500 mg In Empty 35.700 100.795 15.907 Bag 1 bag @ Titrate IV . Q0M [facility] Rx#:[id number] Sodium Phosphate 10 mmol 500 In Sodium Chloride 0.9% 250 ml @ 125 mls/hr IVPB Q2H [facility] Rx#:[id number] Valproate Sodium 500 mg 50 50 50 In Sodium Chloride 0.9% 50 ml @ 50 mls/hr IVPB Q12HR [facility] Rx#:[id number] Vancomycin 1,500 mg In 125 375 Sodium Chloride 0.9% 250 ml @ 125 mls/hr IVPB Q12H [facility] Rx#:[id number] Other 60 180 90 Output: Gastric Drainage 50 Urine 674 930 405 Other: Voiding Method Indwelling Catheter Indwelling Catheter Indwelling Catheter - Exam GENERAL EXAM: Alert, comfortable in no apparent distress. HEAD: Normocephalic. EYES: Normal reaction of pupils, equal size. NOSE: Clear with pink turbinates. THROAT: No erythema or exudates. NECK: No masses, no JVD. CHEST: No chest wall deformity. LUNGS: Equal air entry with no crackles, wheeze, rhonchi or dullness. Bases diminished CVS: S1 and S2 normal with no audible mumurs, regular rhythm. ABDOMEN: No hepatosplenomegaly, normal bowel sounds, no guarding or rigidity. EXTREMITIES: Trace edema noted, pedal pulses palpable. SKIN: No rashes CENTRAL NERVOUS SYSTEM: No focal deficits, tone is normal in all 4 extremities. - Labs CBC & Chem 7: 07/18/16 05:50 07/18/16 05:50 Labs: Abnormal Lab Results - Last 24 Hours (Table) 07/17/16 07/17/16 07/18/16 Range/Units 12:55 19:12 00:30 RBC 3.48 L (4.30-5.90) m/uL Hgb 11.0 L (13.0-17.5) gm/dL Hct 33.6 L (39.0-53.0) % RDW 15.8 H (11.5-15.5) % Plt Count 102 L (150-450) k/uL Lymphocytes # 0.9 L (1.0-4.8) k/uL ABG pCO2 (35-45) mmHg ABG HCO3 (21-25) mmol/L ABG O2 Saturation (94-97) % Potassium 5.4 H (3.5-5.1) mmol/L Chloride (98-107) mmol/L Carbon Dioxide (22-30) mmol/L BUN (9-20) mg/dL Glucose (74-99) mg/dL Calcium (8.4-10.2) mg/dL Total Protein (6.3-8.2) g/dL Albumin (3.5-5.0) g/dL Urine Protein Trace H (Negative) Urine Blood Small H (Negative) Ur Leukocyte Esterase Large H (Negative) Urine RBC 13 H (0-5) /hpf Urine WBC 41 H (0-5) /hpf Urine WBC Clumps Rare H (None) /hpf Urine Bacteria Moderate H (None) /hpf Urine Mucus Rare H (None) /hpf 07/18/16 07/18/16 07/18/16 Range/Units 00:30 05:50 05:50 RBC 3.40 L (4.30-5.90) m/uL Hgb 11.0 L (13.0-17.5) gm/dL Hct 32.4 L (39.0-53.0) % RDW 15.6 H (11.5-15.5) % Plt Count 97 L (150-450) k/uL Lymphocytes # 0.8 L (1.0-4.8) k/uL ABG pCO2 (35-45) mmHg ABG HCO3 (21-25) mmol/L ABG O2 Saturation (94-97) % Potassium 3.4 L (3.5-5.1) mmol/L Chloride 112 H 112 H (98-107) mmol/L Carbon Dioxide 21 L 19 L (22-30) mmol/L BUN 24 H 24 H (9-20) mg/dL Glucose 101 H (74-99) mg/dL Calcium 8.2 L 8.3 L (8.4-10.2) mg/dL Total Protein 6.2 L (6.3-8.2) g/dL Albumin 3.0 L (3.5-5.0) g/dL Urine Protein (Negative) Urine Blood (Negative) Ur Leukocyte Esterase (Negative) Urine RBC (0-5) /hpf Urine WBC (0-5) /hpf Urine WBC Clumps (None) /hpf Urine Bacteria (None) /hpf Urine Mucus (None) /hpf 07/18/16 Range/Units 09:16 RBC (4.30-5.90) m/uL Hgb (13.0-17.5) gm/dL Hct (39.0-53.0) % RDW (11.5-15.5) % Plt Count (150-450) k/uL Lymphocytes # (1.0-4.8) k/uL ABG pCO2 28 L (35-45) mmHg ABG HCO3 18 L (21-25) mmol/L ABG O2 Saturation 98.5 H (94-97) % Potassium (3.5-5.1) mmol/L Chloride (98-107) mmol/L Carbon Dioxide (22-30) mmol/L BUN (9-20) mg/dL Glucose (74-99) mg/dL Calcium (8.4-10.2) mg/dL Total Protein (6.3-8.2) g/dL Albumin (3.5-5.0) g/dL Urine Protein (Negative) Urine Blood (Negative) Ur Leukocyte Esterase (Negative) Urine RBC (0-5) /hpf Urine WBC (0-5) /hpf Urine WBC Clumps (None) /hpf Urine Bacteria (None) /hpf Urine Mucus (None) /hpf Microbiology - Last 24 Hours (Table) 07/16/16 18:29 Gram Stain - Final Sputum Sputum Culture - Final 07/16/16 18:59 Blood Culture - Preliminary Blood No Growth after 24 hours 07/17/16 12:55 Urine Culture - Preliminary Urine,Catheterized Assessment and Plan Plan: Assessment Acute hypoxic respiratory failure Left lower lobe pneumonia suspect mixed bacterial Mental status changes Status Epilepticus Generalized seizures Urinary tract infection Elevated troponins, likely related to seizures. History of strokes with left-sided weakness History of seizures History of Hydrocephalus with shunt Plan Medications have been reviewed and will be continued as ordered. Continue the current nebulizer treatments. IV antibiotics as ordered. Patient will be extubated to 2 L via nasal cannula. Supplemental oxygen to maintain oxygen saturations greater than 92%. Continue with pulmonary hygiene, nebulizer treatments, and supportive care. Awaiting final cultures. Infectious disease on consult. Neurology on consult. GI and DVT prophylaxis. Repeat labs and chest x-ray in the morning. Seizure precautions in place. We will continue to monitor labs/results and adjust treatment as necessary. I performed an examination of the patient and discussed their management with the nurse practitioner. I have reviewed the nurse practitioner's note and agree with the documented findings and plan of care.
--- NOTE | 2016-07-18 11:12 | CONS ---
DATE OF CONSULTATION: 07/17/2016 REASON FOR CONSULTATION: 1. Urinary tract infection. 2. Possible aspiration pneumonia. HISTORY OF PRESENT ILLNESS: The patient is a 61-year-old male who is a resident of [facility] with a known history of CVA, TIA and seizure disorder. EMS was called after patient noticed to have a witnessed seizure that last for about 20 minutes. On arrival of the EMS, the patient was still seizing and he received about 10 mg of Versed. Subsequently the patient was rushed to the [facility] ER. The patient was evaluated by the ER physician and because of his and compromised suspicion, the patient ended up to intubate and has been admitted to the ICU. Subsequently, the patient noticed to have a low grade fever of 100.5. He was also noted to gave new patchy left lower lobe pneumonia with a positive UA. The patient was started on broad spectrum antibiotic in the form of Zosyn. I was asked to see the patient for further recommendations regarding antibiotic therapy. All of this above mentioned has been obtained from review of the chart. At this time, the patient is currently intubated on the vent and unable to provide history, though did not require any pressor support. REVIEW OF SYSTEMS: Could not be reliably obtained, but positive points has been mentioned in HPI. PAST MEDICAL HISTORY: Hypertension, hyperlipidemia, seizure disorder, CVA, TIA, memory impairment, hydrocephalus, seizure disorder. PAST SURGICAL HISTORY: Significant for shunt for hydrocephalus. SOCIAL HISTORY: No history of smoking, drinking, or drug use. Currently a resident of [facility]. FAMILY HISTORY: No pertinent findings noticed. ALLERGIES: No known drug allergies. Medications include the patient is currently on [place], DuoNeb, Zyloprim, Pulmicort, Lotrimin, Aricept, Flonase, heparin, hydrochlorothiazide, Dilaudid, Lopressor, propofol, Narcan, Zofran, Protonix, piperacillin tazobactam, vancomycin, Hytrin, Topamax, valproic acid and vancomycin. On examination, blood pressure is 103/53 with a pulse of 69, temperature 98.6, T-max is 100.5. He is a 96% on 40%. General description is a middle-aged intubated on the vent. HEENT examination shows slight pallor. No scleral icterus. Oral mucous membranes dry. Patient is orally Intubated. NECK: Trachea central. No thyromegaly. LUNGS: Unlabored breathing. Some coarse breath sounds at the bases. No wheeze. HEART: S1, S2. Regular rate and rhythm. ABDOMEN: Soft, no tenderness. EXTREMITIES: No edema of feet. SKIN EXAMINATION: No rash or mass palpable. NEUROLOGICAL: The patient is currently intubated on the vent and unable to provide any history . LABS: Hemoglobin is 12.1, white count 9.1 with a BUN of 29, creatinine 0.80. Troponin is slightly elevated. Urine has been positive for leukocyte esterases, 41 WBCs, moderate bacteria, cultures pending. Sputum cultures currently pending. Chest x-ray report with new left lower lobe pneumonia. DIAGNOSTIC IMPRESSION AND PLAN: 1. Patient admitted to the hospital with seizure disorder and respiratory distress requiring ventilator support with a new left lower lobe infiltrate, question of possible aspiration pneumonitis. 2. The patient found to have positive UA with question of enteric gram-negative urinary tract infection with history of a chronic Cdi catheterization at the group home. PLAN: 1. Blood culture has been obtained as well as urine cultures and sputum cultures, those will be followed. 2. Zosyn will be continued at 3.375 gram q.8 to cover for possible aspiration pneumonia as well as UTI. 3. Will follow up on the clinical condition and cultures to further adjust the medication if needed. Thank you for this consultation. We will follow this patient along with you. JAMILA
--- NOTE | 2016-07-18 11:56 | P.PN ---
Subjective A 61-year-old male being seen in the intensive care unit orally intubated FiO2 at 40% tidal volume 550 PEEP 5. Patients being followed by neurology and pulmonology service. Patient's initial presentation was from the [facility] in [place] where EMS were called when care providers noted the patient was experiencing seizure activity. Upon arrival the EMS noted the patient was having a generalized tonic clonic seizure. It lasted about 20 minutes according to the nursing staff. Patient was given IV Versed which did stop the seizures. The patient arrived to the emergency room patient was drowsy likely due to the Versed and postictal state. It is noted in the emergency room patient was hypoxic experiencing acute hypoxic respiratory failure needed to be intubated and admitted to the intensive care unit for closer monitoring. A CAT scan of the brain was done it showed generalized atrophy which was felt to be unchanged when compared to a prior study in 2016. Patient's serum Depakote level was borderline therapeutic at 56.4 . Patient does have a history of hydrocephalus with [employer] shunt placement additionally patient has had a prior history of a CVA with left-sided weakness. Additionally the patient was noted to be febrile temp was 100.5. Chest x-ray noted a patchy left lower lobe pneumonia with a positive UA. Currently patients being followed by infectious disease and pulmonology service Objective - Vital Signs Vital signs: Vital Signs Temp 100 F H 07/18/16 08:00 Pulse 68 07/18/16 11:00 Resp 18 07/18/16 11:00 BP 132/76 07/18/16 11:00 Pulse Ox 94 L 07/18/16 11:00 Intake & Output 07/17/16 07/18/16 07/18/16 18:59 06:59 18:59 Intake Total 2015.533 1988.295 643.407 Output Total 724 930 480 Balance 8689.336 4717.295 163.407 Weight 99.2 kg 102.3 kg Intake: IV 1090 1170 450 Sodium Chloride 0.9% 1, 1090 1170 450 000 ml @ 100 mls/hr IV . Q10H [facility] Rx#:[id number] Intake, IV Titration 865.533 638.295 103.407 Amount ACETAMINOPHEN IV (For NPO 100 ) 1,000 mg In Empty Bag 1 bag @ 400 mls/hr IVPB Q6HR [facility] Rx#:[id number] Piperacillin-Tazobactam 3 75.0 12.5 37.5 .375 gm In Dextrose/Water 1 50ml.bag @ 12.5 mls/hr IVPB Q8HR [facility] Rx#: [id number] Propofol 500 mg In Empty 79.833 Bag 1 bag @ Titrate IV . Q0M [facility] Rx#:[id number] Propofol 500 mg In Empty 35.700 100.795 15.907 Bag 1 bag @ Titrate IV . Q0M [facility] Rx#:[id number] Sodium Phosphate 10 mmol 500 In Sodium Chloride 0.9% 250 ml @ 125 mls/hr IVPB Q2H [facility] Rx#:[id number] Valproate Sodium 500 mg 50 50 50 In Sodium Chloride 0.9% 50 ml @ 50 mls/hr IVPB Q12HR [facility] Rx#:[id number] Vancomycin 1,500 mg In 125 375 Sodium Chloride 0.9% 250 ml @ 125 mls/hr IVPB Q12H [facility] Rx#:[id number] Other 60 180 90 Output: Gastric Drainage 50 Urine 674 930 480 Other: Voiding Method Indwelling Catheter Indwelling Catheter Indwelling Catheter - Exam GENERAL APPEARANCE: 61 -year-old patient orally intubated with vent support eyes open will move extremities to simple command makes eye contact. VITAL SIGNS: Reviewed HEENT: Head is normocephalic and atraumatic. Pupils are equal and reactive. The nares are patent. Oropharynx is clear without lesions. NECK: Supple without lymphadenopathy. Traches midline. HEART: S1, S2. Regular rate and rhythm. No murmur noted LUNGS: No crackles or wheezes are heard. Anterior diminished at the bases otherwise adequate air movement ABDOMEN: Soft, nontender, nondistended with good bowel sounds. No peritoneal signs. No palpable organomegaly or masses. Indwelling Cid catheter in place EXTREMITIES: I lateral Venodyne's on to the bilateral lower extremities no edema. Radial pedal pulses are 2/4 bilaterally. Left side weakness NEUROLOGICAL: No focal deficits. Strength and sensation are grossly intact. - Labs CBC & Chem 7: 07/18/16 05:50 07/18/16 05:50 Labs: Abnormal Lab Results - Last 24 Hours (Table) 07/17/16 07/17/16 07/18/16 Range/Units 12:55 19:12 00:30 RBC 3.48 L (4.30-5.90) m/uL Hgb 11.0 L (13.0-17.5) gm/dL Hct 33.6 L (39.0-53.0) % RDW 15.8 H (11.5-15.5) % Plt Count 102 L (150-450) k/uL Lymphocytes # 0.9 L (1.0-4.8) k/uL ABG pCO2 (35-45) mmHg ABG HCO3 (21-25) mmol/L ABG O2 Saturation (94-97) % Potassium 5.4 H (3.5-5.1) mmol/L Chloride (98-107) mmol/L Carbon Dioxide (22-30) mmol/L BUN (9-20) mg/dL Glucose (74-99) mg/dL Calcium (8.4-10.2) mg/dL Total Protein (6.3-8.2) g/dL Albumin (3.5-5.0) g/dL Urine Protein Trace H (Negative) Urine Blood Small H (Negative) Ur Leukocyte Esterase Large H (Negative) Urine RBC 13 H (0-5) /hpf Urine WBC 41 H (0-5) /hpf Urine WBC Clumps Rare H (None) /hpf Urine Bacteria Moderate H (None) /hpf Urine Mucus Rare H (None) /hpf 07/18/16 07/18/16 07/18/16 Range/Units 00:30 05:50 05:50 RBC 3.40 L (4.30-5.90) m/uL Hgb 11.0 L (13.0-17.5) gm/dL Hct 32.4 L (39.0-53.0) % RDW 15.6 H (11.5-15.5) % Plt Count 97 L (150-450) k/uL Lymphocytes # 0.8 L (1.0-4.8) k/uL ABG pCO2 (35-45) mmHg ABG HCO3 (21-25) mmol/L ABG O2 Saturation (94-97) % Potassium 3.4 L (3.5-5.1) mmol/L Chloride 112 H 112 H (98-107) mmol/L Carbon Dioxide 21 L 19 L (22-30) mmol/L BUN 24 H 24 H (9-20) mg/dL Glucose 101 H (74-99) mg/dL Calcium 8.2 L 8.3 L (8.4-10.2) mg/dL Total Protein 6.2 L (6.3-8.2) g/dL Albumin 3.0 L (3.5-5.0) g/dL Urine Protein (Negative) Urine Blood (Negative) Ur Leukocyte Esterase (Negative) Urine RBC (0-5) /hpf Urine WBC (0-5) /hpf Urine WBC Clumps (None) /hpf Urine Bacteria (None) /hpf Urine Mucus (None) /hpf 07/18/16 Range/Units 09:16 RBC (4.30-5.90) m/uL Hgb (13.0-17.5) gm/dL Hct (39.0-53.0) % RDW (11.5-15.5) % Plt Count (150-450) k/uL Lymphocytes # (1.0-4.8) k/uL ABG pCO2 28 L (35-45) mmHg ABG HCO3 18 L (21-25) mmol/L ABG O2 Saturation 98.5 H (94-97) % Potassium (3.5-5.1) mmol/L Chloride (98-107) mmol/L Carbon Dioxide (22-30) mmol/L BUN (9-20) mg/dL Glucose (74-99) mg/dL Calcium (8.4-10.2) mg/dL Total Protein (6.3-8.2) g/dL Albumin (3.5-5.0) g/dL Urine Protein (Negative) Urine Blood (Negative) Ur Leukocyte Esterase (Negative) Urine RBC (0-5) /hpf Urine WBC (0-5) /hpf Urine WBC Clumps (None) /hpf Urine Bacteria (None) /hpf Urine Mucus (None) /hpf Microbiology - Last 24 Hours (Table) 07/16/16 18:29 Gram Stain - Final Sputum Sputum Culture - Final 07/16/16 18:59 Blood Culture - Preliminary Blood No Growth after 24 hours 07/17/16 12:55 Urine Culture - Preliminary Urine,Catheterized Assessment and Plan Plan: Impression Present on admission acute hypoxic respiratory failure likely medication induced versed prior to arrival and seizure activity Present on admission leukocytosis febrile suspect sepsis left lower lobe pneumonia mixed bacteria with a urinary tract infection History of a seizure disorder Present on admission Depakote level borderline therapeutic Hydrocephalus history of [employer] shunt placement Depressive disorder nonspecified Mild thrombocytopenia Mild anemia with no evidence of acute blood loss likely due to chronic illness Chronic debility with left-sided weakness Plan Continue with the recommendations from the computer numerical control operator for ICU management Anticipate the patient could be extubated today defer to pulmonology for management Continue current recommendations by neurology service Resume home meds as appropriate DVT and GI prophylaxis Await infectious diseases recommendations currently on IV vancomycin Repeat labs in the morning The above dictated assessment and findings were discussed with dr robert Impression and the plan of care have been dictated as directed. Lina Manley nurse practitioner acting as a scribe for dr robert.
--- NOTE | 2016-07-18 13:06 | EEG ---
DATE OF SERVICE: 07/17/2016 INDICATIONS FOR EXAMINATION: Seizures. AGE: 61Y Current antiepileptic medications: Depakote, Dilantin, Topamax. DESCRIPTION OF PROCEDURE: This EEG was performed using a 21 channel digital electroencephalograph following international 10-20 system. DESCRIPTION OF THE RECORDING: From the beginning of the tracing, with the patient's eyes closed, the background rhythm was mostly consisting of 8-9 Hz alpha frequency in the posterior occipital leads. No obvious asymmetry is seen. Photic stimulation is performed with a minimal driving response seen. No pathological waves were elicited. Hyperventilation was not performed. The patient remains awake throughout the tracing. No epileptiform discharges were seen. Occasional lead artifacts and movement artifacts were seen. INTERPRETATION: This awake EEG can be considered within normal limits. There was no asymmetry seen. No epileptiform discharges were noticed. The absence of epileptiform discharges does not rule out the diagnosis of epilepsy. Therefore, clinical correlation is recommended.
[2016-07-18] MEDS: POTASSIUM CHLORIDE 10 MEQ, LIDOCAINE 2% INJ 10 MG in SODIUM CHLORIDE 0.9% 100 ML IV SCH ×2 (14:14→15:42)
--- NOTE | 2016-07-18 18:23 | PN ---
DATE OF SERVICE: 07/18/2016 REASON FOR FOLLOWUP: Possible aspiration pneumonia and UTI. INTERVAL HISTORY: The patient did spike a low-grade fever of 100.3. The patient, though, has been extubated successfully. He is hemodynamically stable, not on any pressor support. He did have a congested cough, though denies any chest pain or abdominal pain, and no diarrhea. On examination, blood pressure is 118/68 with a pulse of 86, temperature of 100.3. He is 97% on 4 L nasal cannula. General description is a middle-aged male lying in bed in no distress. RESPIRATORY SYSTEM: Unlabored breathing. Coarse breath sounds bilaterally. HEART: S1, S2. Regular rate and rhythm. ABDOMEN: Soft. No tenderness. LABS: Hemoglobin is 11, white count of 8.4, BUN 24, creatinine 0.80. Cultures are currently pending. DIAGNOSTIC IMPRESSION AND PLAN: Patient admitted to hospital with seizures; did require resuscitation and subsequent intubation to protect the airway with left lower lobe pneumonia likely aspiration etiology. Also has a component of UTI. Patient is currently covered with Zosyn. That will be continued, adjusting antibiotics further based on the culture report. Family present at the bedside. Their questions were answered. JAMILA
[2016-07-18] MEDS: CLOTRIMAZOLE 1% CREAM 15 GM TUBE TOPICAL SCH (21:09)
[2016-07-18] MEDS: DONEPEZIL 10 MG TAB PO SCH (21:09)
[2016-07-18] MEDS: FLUTICASONE 50MCG/SPRAY NASAL 16GM EA NOSTRIL SCH (21:11)
[2016-07-18] MEDS: TERAZOSIN 1 MG CAP PO SCH (21:11)
[2016-07-18] MEDS: PRAVASTATIN SODIUM 40 MG TAB PO SCH (21:11)
[2016-07-19] MEDS: HEPARIN SODIUM,PORCINE 5,000 UNIT/ML 1 ML VIAL SQ SCH ×4 (00:19→23:41)
[2016-07-19] MEDS: PIPERACILLIN-TAZOBACTAM 3.375 GM in DEXTROSE/WATER 1 50ML.BAG IVPB SCH ×4 (00:19→23:41)
[2016-07-19] MEDS: IPRATROPIUM-ALBUTEROL 3 ML NEB INHALATION SCH ×5 (03:33→19:51)
--- NOTE | 2016-07-19 05:17 | PN ---
CHIEF COMPLAINT: Grand mal seizure. HISTORY OF PRESENT ILLNESS: This gentleman is awake and alert now and is being weaned and will be extubated. PHYSICAL EXAM: Vital signs are normal. He is fully awake and alert and follows with his eyes. Chest is clear. Cardiac exam is normal. ABDOMEN: Soft. EXTREMITIES: Normal and well perfused. IMPRESSION: 1. Grand mal seizure disorder. 2. Encephalopathy. 3. Schizophrenia. PLAN: Continue efforts to wean off of ventilator.
[2016-07-19 06:22] LABS: Basophils % (A) 0 %; CH 31.8; Eosinophils # (A) 0.1 k/uL (0-0.7); Eosinophils % (A) 1 %; HCT 34.1 % (39.0-53.0); HGB 11.1 gm/dL (13.0-17.5); Luc # (Auto) 0.19; Luc % (Auto) 2; Lymphocytes # (A) 1.8 k/uL (1.0-4.8); Lymphocytes % (A) 17 %; MCH 31.5 pg (25.0-35.0); MCHC 32.5 g/dL (31.0-37.0); MCV 96.9 fL (80.0-100.0); Mean Platelet Volume 8.1; Monocytes # (A) 0.9 k/uL (0-1.0); Monocytes % (A) 9 %; Neutrophils # (A) 7.5 k/uL (1.3-7.7); Neutrophils % (A) 72 %; RBC 3.52 m/uL (4.30-5.90); RDW 15.3 % (11.5-15.5); WBC 10.5 k/uL (3.8-10.6); WBC (Perox) 9.39
[2016-07-19 06:54] LABS: Anion Gap 10 mmol/L; Calcium 8.5 mg/dL (8.4-10.2); Carbon Dioxide 21 mmol/L (22-30); Chloride 115 mmol/L (98-107); Glucose 89 mg/dL (74-99); Non-African American GFR(MDRD) >60 (>60 ml/min/1.73 sqM); Sodium 146 mmol/L (137-145)
[2016-07-19 06:57] LABS: Blood Urea Nitrogen 18 mg/dL (9-20); Magnesium 1.8 mg/dL (1.6-2.3); Phosphorous 2.8 mg/dL (2.5-4.5); Potassium 4.3 mmol/L (3.5-5.1)
[2016-07-19 07:51] LABS: Manual Review Performed
[2016-07-19] MEDS: MAGNESIUM SULFATE-D5W PMX 1 GM in DEXTROSE/WATER 1 100ML.BAG IVPB SCH ×2 (07:54→11:07)
[2016-07-19] MEDS: SODIUM CHLORIDE 0.9% 1,000 ML IV SCH ×2 (07:54→16:21)
[2016-07-19] MEDS: VANCOMYCIN 1,500 MG in SODIUM CHLORIDE 0.9% 250 ML IVPB SCH (08:01)
[2016-07-19] MEDS: PANTOPRAZOLE 40 MG/10 ML VIAL IV SCH (08:03)
[2016-07-19] MEDS: ALLOPURINOL 300 MG TAB PO SCH (08:04)
[2016-07-19] MEDS: METOPROLOL TARTRATE 12.5 MG TAB PO SCH ×2 (08:04→21:25)
[2016-07-19] MEDS: TOPIRAMATE 25 MG TAB PO SCH (08:05)
[2016-07-19] MEDS: PARoxetine 20 MG TAB PO SCH (08:05)
[2016-07-19] MEDS: HYDROCHLOROTHIAZIDE 25 MG TAB PO SCH (08:05)
[2016-07-19] MEDS: BUDESONIDE 1 MG/2 ML NEBU INHALATION SCH ×2 (08:18→19:51)
[2016-07-19] MEDS: HYDROcodone/APAP 10-325MG 1 EACH TAB PO SCH ×2 (08:20→21:24)
--- NOTE | 2016-07-19 09:10 | XR ---
EXAMINATION TYPE: XR chest 1V portable DATE OF EXAM: 07/19/2016 6:21 AM COMPARISON: 07/18/2016 HISTORY: Tube placement TECHNIQUE: Single frontal view of the chest is obtained. FINDINGS: ET and NG tube have been removed. Central line noted. Persistent left-sided infiltrate and pleural effusion with increasing infiltrate at the right lung base. No pneumothorax. Venous congestion not excluded. IMPRESSION: 1. ET and NG tube removal with stable left-sided infiltrate and pleural effusion. 2. Increasing right-sided infiltrate.
[2016-07-19] MEDS: VALPROATE SODIUM 500 MG in SODIUM CHLORIDE 0.9% 50 ML IVPB SCH ×2 (11:07→21:25)
--- NOTE | 2016-07-19 11:40 | P.PN ---
Subjective This is a 61-year-old male patient being evaluated and examined today in the intensive care unit. This patient is a resident of [facility] and he had a witnessed seizure that lasted about 20 minutes on and off per the medical [place] staff. When EMS arrived the patient was still seizing and they gave the patient 10 mg of Versed. Upon arrival to the emergency room and patient was sleeping with snoring respirations but was able to maintain his airway when sitting up. The patient's oxygen saturations were maintained around 90% on 2 L. The patient's further became apneic a few hours later while in the emergency room and was roughly in the low 80s on nasal cannula. In nonrebreather mask was applied to the patient and there was no change in oxygen saturation therefore the patient was sedated and intubated. The patient was a difficult intubation as well as a difficult Cid insertion. Upon examination the patient is resting in bed, currently participating with physical therapy at bedside. Patient is on 2 L of oxygen via nasal cannula. Does have a productive cough with clear sputum. Patient is less confused today. Urine output has been good. Patient is hemodynamically stable. Repeat chest x-ray today revealed a stable left-sided infiltrate with pleural effusion and slightly increasing right-sided infiltrate. Patient's daughter at bedside updated on patient's status and plan of care. Objective - Vital Signs Vital signs: Vital Signs Temp 98.6 F 07/19/16 08:00 Pulse 67 07/19/16 11:00 Resp 20 07/19/16 11:00 BP 103/58 07/19/16 11:00 Pulse Ox 95 07/19/16 11:00 Intake & Output 07/18/16 07/19/16 07/19/16 18:59 06:59 18:59 Intake Total 5023.854 8671.5 1170.0 Output Total 1625 1440 395 Balance -126.593 -142.5 775.0 Weight 100.6 kg Intake: IV 930 1110 390 Magnesium Sulfate-D5w Pmx 200 1 gm In Dextrose/Water 1 100ml.bag @ 100 mls/hr IVPB Q1H [facility] Rx#: [id number] Sodium Chloride 0.9% 1, 930 1110 190 000 ml @ 100 mls/hr IV . Q10H [facility] Rx#:[id number] Intake, IV Titration 478.407 187.5 300.0 Amount Piperacillin-Tazobactam 3 87.5 12.5 50.0 .375 gm In Dextrose/Water 1 50ml.bag @ 12.5 mls/hr IVPB Q8HR [facility] Rx#: [id number] Potassium Chloride 10 meq 200 Lidocaine 2% Inj 10 mg In Sodium Chloride 0.9% 100 ml @ 100 mls/hr IV Q1HR [facility] Rx#:[id number] Propofol 500 mg In Empty 15.907 Bag 1 bag @ Titrate IV . Q0M [facility] Rx#:[id number] Valproate Sodium 500 mg 50 50 In Sodium Chloride 0.9% 50 ml @ 50 mls/hr IVPB Q12HR [facility] Rx#:[id number] Vancomycin 1,500 mg In 125 125 250 Sodium Chloride 0.9% 250 ml @ 125 mls/hr IVPB Q12H [facility] Rx#:[id number] Oral 480 Other 90 Output: Urine 1625 1440 395 Other: Voiding Method Indwelling Catheter Indwelling Catheter Indwelling Catheter # Bowel Movements 1 1 - Exam GENERAL EXAM: Alert, comfortable in no apparent distress. HEAD: Normocephalic. EYES: Normal reaction of pupils, equal size. NOSE: Clear with pink turbinates. THROAT: No erythema or exudates. NECK: No masses, no JVD. CHEST: No chest wall deformity. LUNGS: Equal air entry with no crackles, wheeze, rhonchi or dullness. Bases diminished CVS: S1 and S2 normal with no audible mumurs, regular rhythm. ABDOMEN: No hepatosplenomegaly, normal bowel sounds, no guarding or rigidity. EXTREMITIES: Trace edema noted, pedal pulses palpable. SKIN: No rashes CENTRAL NERVOUS SYSTEM: No focal deficits, tone is normal in all 4 extremities. - Labs CBC & Chem 7: 07/19/16 05:23 07/19/16 05:23 Labs: Abnormal Lab Results - Last 24 Hours (Table) 07/19/16 07/19/16 Range/Units 05:23 05:23 RBC 3.52 L (4.30-5.90) m/uL Hgb 11.1 L (13.0-17.5) gm/dL Hct 34.1 L (39.0-53.0) % Plt Count 95 L (150-450) k/uL Sodium 146 H (137-145) mmol/L Chloride 115 H (98-107) mmol/L Carbon Dioxide 21 L (22-30) mmol/L Microbiology - Last 24 Hours (Table) 07/18/16 00:30 Blood Culture - Preliminary Blood No Growth after 24 hours 07/16/16 18:59 Blood Culture - Preliminary Blood No Growth after 48 hours 07/17/16 12:55 Urine Culture - Final Urine,Catheterized 07/16/16 18:29 Gram Stain - Final Sputum Sputum Culture - Final Assessment and Plan Plan: Assessment Acute hypoxic respiratory failure Left lower lobe pneumonia suspect mixed bacterial Mental status changes Status Epilepticus Generalized seizures Urinary tract infection Elevated troponins, likely related to seizures. History of strokes with left-sided weakness History of seizures History of Hydrocephalus with shunt Plan Patient can be downgraded from the intensive care unit patient has remained hemodynamically stable at this time. Chest x-rays have been reviewed. Medications have been reviewed and will be continued as ordered. Continue the current nebulizer treatments. IV antibiotics as ordered. Patient will be extubated to 2 L via nasal cannula. Supplemental oxygen to maintain oxygen saturations greater than 92%. Continue with pulmonary hygiene, nebulizer treatments, and supportive care. Awaiting final cultures. Infectious disease on consult. Neurology on consult. GI and DVT prophylaxis. Repeat labs and chest x-ray in the morning. Seizure precautions in place. We will continue to monitor labs/results and adjust treatment as necessary. I performed an examination of the patient and discussed their management with the nurse practitioner. I have reviewed the nurse practitioner's note and agree with the documented findings and plan of care.
--- NOTE | 2016-07-19 13:33 | P.PN ---
Subjective 61-year-old male being seen and examined in the ICU this morning. Patient has been extubated day before currently is on a nasal cannula keeping a sat greater than 95%. Patient has had no further seizure activity since admission. Patient is currently awake and will follow simple commands. Patient's been seen by neurology. Patient did have a CAT scan of the brain on admission that showed no changes from 2015. Patient additionally is being followed by infectious disease for UTI urine culture showing no growth today with cultures showing no growth in the sputum is negative Objective - Vital Signs Vital signs: Vital Signs Temp 98.6 F 07/19/16 08:00 Pulse 66 07/19/16 12:40 Resp 20 07/19/16 11:00 BP 103/58 07/19/16 11:00 Pulse Ox 95 07/19/16 11:00 Intake & Output 07/18/16 07/19/16 07/19/16 18:59 06:59 18:59 Intake Total 4478.327 7512.5 1170.0 Output Total 1625 1440 395 Balance -126.593 -142.5 775.0 Weight 100.6 kg Intake: IV 930 1110 390 Magnesium Sulfate-D5w Pmx 200 1 gm In Dextrose/Water 1 100ml.bag @ 100 mls/hr IVPB Q1H [facility] Rx#: [id number] Sodium Chloride 0.9% 1, 930 1110 190 000 ml @ 100 mls/hr IV . Q10H [facility] Rx#:[id number] Intake, IV Titration 478.407 187.5 300.0 Amount Piperacillin-Tazobactam 3 87.5 12.5 50.0 .375 gm In Dextrose/Water 1 50ml.bag @ 12.5 mls/hr IVPB Q8HR [facility] Rx#: [id number] Potassium Chloride 10 meq 200 Lidocaine 2% Inj 10 mg In Sodium Chloride 0.9% 100 ml @ 100 mls/hr IV Q1HR [facility] Rx#:[id number] Propofol 500 mg In Empty 15.907 Bag 1 bag @ Titrate IV . Q0M [facility] Rx#:[id number] Valproate Sodium 500 mg 50 50 In Sodium Chloride 0.9% 50 ml @ 50 mls/hr IVPB Q12HR [facility] Rx#:[id number] Vancomycin 1,500 mg In 125 125 250 Sodium Chloride 0.9% 250 ml @ 125 mls/hr IVPB Q12H [facility] Rx#:[id number] Oral 480 Other 90 Output: Urine 1625 1440 395 Other: Voiding Method Indwelling Catheter Indwelling Catheter Indwelling Catheter # Bowel Movements 1 1 - Exam GENERAL APPEARANCE: 61 -year-old patient resting in bed currently nasal cannula 3 L eyes open will move extremities to simple command makes eye contact. VITAL SIGNS: Reviewed HEENT: Head is normocephalic and atraumatic. Pupils are equal and reactive. The nares are patent. Oropharynx is clear without lesions. NECK: Supple without lymphadenopathy. Traches midline. HEART: S1, S2. Regular rate and rhythm. No murmur noted LUNGS: No crackles or wheezes are heard. Anterior diminished at the bases otherwise adequate air movement ABDOMEN: Soft, nontender, nondistended with good bowel sounds. No peritoneal signs. No palpable organomegaly or masses. Indwelling Cid catheter in place EXTREMITIES: I lateral Venodyne's on to the bilateral lower extremities no edema. Radial pedal pulses are 2/4 bilaterally. Left side weakness NEUROLOGICAL: No focal deficits. Strength and sensation are grossly intact. - Labs CBC & Chem 7: 07/19/16 05:23 07/19/16 05:23 Labs: Abnormal Lab Results - Last 24 Hours (Table) 07/19/16 07/19/16 Range/Units 05:23 05:23 RBC 3.52 L (4.30-5.90) m/uL Hgb 11.1 L (13.0-17.5) gm/dL Hct 34.1 L (39.0-53.0) % Plt Count 95 L (150-450) k/uL Sodium 146 H (137-145) mmol/L Chloride 115 H (98-107) mmol/L Carbon Dioxide 21 L (22-30) mmol/L Microbiology - Last 24 Hours (Table) 07/18/16 00:30 Blood Culture - Preliminary Blood No Growth after 24 hours 07/16/16 18:59 Blood Culture - Preliminary Blood No Growth after 48 hours 07/17/16 12:55 Urine Culture - Final Urine,Catheterized 07/16/16 18:29 Gram Stain - Final Sputum Sputum Culture - Final Assessment and Plan Plan: Impression Present on admission acute hypoxic respiratory failure likely medication induced versed prior to arrival and seizure activity Present on admission leukocytosis febrile suspect sepsis multifactorial left lower lobe pneumonia mixed bacteria with a urinary tract infection History of a seizure disorder Present on admission Depakote level borderline therapeutic Hydrocephalus history of WIRE WINDER shunt placement Depressive disorder nonspecified Mild thrombocytopenia Mild anemia with no evidence of acute blood loss likely due to chronic illness Chronic debility with left-sided weakness Plan Resume home meds as appropriate DVT and GI prophylaxis Patient to be transferred out of the ICU to a stepdown unit Anticipate the patient to be discharged in the next 24 hours back to medical on Repeat labs in the morning The above dictated assessment and findings were discussed with dr robert Impression and the plan of care have been dictated as directed. Lina Mnaley nurse practitioner acting as a scribe for dr robert.
--- NOTE | 2016-07-19 15:43 | PN ---
07/19/2016 REASON FOR FOLLOWUP: Aspiration pneumonia and urinary tract infection. INTERVAL HISTORY: The patient is afebrile; has been breathing comfortably. Denies significant chest pain. Did have some congested cough. No abdominal pain or any diarrhea. On examination, blood pressure is 124/50 with a pulse of 66, temperature 96.8. He is 98% on room air. General description is a middle-aged male lying in bed in no distress. RESPIRATORY SYSTEM: Unlabored breathing. Some coarse breath sounds and wheezes bilaterally. HEART: S1, S2. Regular rate and rhythm. ABDOMEN: Soft. No tenderness. LABS: Hemoglobin is 11.1, white count 10.5 with a BUN of 18, creatinine 0.68. Blood and sputum cultures so far negative. DIAGNOSTIC IMPRESSION AND PLAN: Patient admitted to hospital with recurrent seizures with respiratory failure requiring ventilator support and a question of left lower lobe aspiration pneumonia, also with a component of urinary tract infection. He is currently covered with Zosyn. That will be continued, switching him to oral at the time of discharge. Continue supportive care.
--- NOTE | 2016-07-19 16:01 | P.PN ---
Subjective Principal diagnosis: Patient is a 61-year-old male who is being followed by the neurology service for status epilepticus. Patient does have history of seizure disorder on Depakote. 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 A computed tomography scan of the brain was done which showed generalized atrophy and this was stable and unchanged as compared to his August 2015 study. His serum Depakote level was borderline therapeutic and his Depakote dosing was increased. Depakote level this morning was 55.6 which is borderline therapeutic. Patient is also on Topamax 50 mg twice a day. His EEG was normal. At the time of my evaluation, patient is resting comfortably in bed and appears to be in no acute distress. Objective - Vital Signs Vital signs: Vital Signs Temp 96.8 F L 07/19/16 13:38 Pulse 53 L 07/19/16 14:04 Resp 19 07/19/16 14:04 BP 124/50 07/19/16 13:38 Pulse Ox 98 07/19/16 13:38 Intake & Output 07/18/16 07/19/16 07/19/16 18:59 06:59 18:59 Intake Total 6414.410 3854.5 1270.0 Output Total 1625 1440 395 Balance -126.593 -142.5 875.0 Weight 100.6 kg Intake: IV 930 1110 490 Magnesium Sulfate-D5w Pmx 200 1 gm In Dextrose/Water 1 100ml.bag @ 100 mls/hr IVPB Q1H [facility] Rx#: [id number] Sodium Chloride 0.9% 1, 930 1110 290 000 ml @ 100 mls/hr IV . Q10H [facility] Rx#:[id number] Intake, IV Titration 478.407 187.5 300.0 Amount Piperacillin-Tazobactam 3 87.5 12.5 50.0 .375 gm In Dextrose/Water 1 50ml.bag @ 12.5 mls/hr IVPB Q8HR [facility] Rx#: [id number] Potassium Chloride 10 meq 200 Lidocaine 2% Inj 10 mg In Sodium Chloride 0.9% 100 ml @ 100 mls/hr IV Q1HR [facility] Rx#:[id number] Propofol 500 mg In Empty 15.907 Bag 1 bag @ Titrate IV . Q0M [facility] Rx#:[id number] Valproate Sodium 500 mg 50 50 In Sodium Chloride 0.9% 50 ml @ 50 mls/hr IVPB Q12HR [facility] Rx#:[id number] Vancomycin 1,500 mg In 125 125 250 Sodium Chloride 0.9% 250 ml @ 125 mls/hr IVPB Q12H [facility] Rx#:[id number] Oral 480 Other 90 Output: Urine 1625 1440 395 Other: Voiding Method Indwelling Catheter Indwelling Catheter Incontinent # Voids 1 # Bowel Movements 1 1 - Exam PHYSICAL EXAM: GENERAL APPEARANCE: Patient is a well-developed, male who appears to be in no acute distress. HEENT: No obvious facial asymmetry is noted. Neck is supple with no masses felt. CARDIOVASCULAR: Regular rate and rhythm. ABDOMEN: Nontender, nondistended. EXTREMITIES: Show no edema or clubbing. NEUROLOGICAL EXAM: Patient is awake alert and oriented 1. Patient states he is in [place] but does not know what building he is in. Patient is unaware of what year this is. Patient does make good eye contact and is conversant. Patient language is inappropriate at times but this may be related to prior stroke. Speech is normal. Strength is 4+/5 in all 4 extremities. Sensory exam is normal to light touch in all 4 extremities. No tremors or seizure-like activity is noted. - Labs CBC & Chem 7: 07/19/16 05:23 07/19/16 05:23 Labs: Abnormal Lab Results - Last 24 Hours (Table) 07/19/16 07/19/16 Range/Units 05:23 05:23 RBC 3.52 L (4.30-5.90) m/uL Hgb 11.1 L (13.0-17.5) gm/dL Hct 34.1 L (39.0-53.0) % Plt Count 95 L (150-450) k/uL Sodium 146 H (137-145) mmol/L Chloride 115 H (98-107) mmol/L Carbon Dioxide 21 L (22-30) mmol/L Microbiology - Last 24 Hours (Table) 07/18/16 00:30 Blood Culture - Preliminary Blood No Growth after 24 hours 07/16/16 18:59 Blood Culture - Preliminary Blood No Growth after 48 hours 07/17/16 12:55 Urine Culture - Final Urine,Catheterized Assessment and Plan Plan: Impression: 1. Status epilepticus 2. Respiratory failure, extubated 3. History of hydrocephalus 4. Urinary tract infection 5. History of stroke Recommendations: The patient did have a generalized tonic-clonic seizure lasting about 20 minutes each is consistent with a status epilepticus. Patient has not had any further seizure-like activity. Patient's Depakote levels are borderline therapeutic. Continue increased dose of Depakote at 500 mg twice a day. I will increase Topamax to 100 mg twice a day. Continue neurological checks. Continue seizure precautions. Continue current medical management. I will continue to follow with you on an as-needed basis. Feel free to call with any questions or concerns. I performed an examination of the patient and discussed the management with the PATROL JUDGE. I have reviewed the PATROL JUDGE notes and agree with the findings and plan of care.
--- NOTE | 2016-07-19 16:30 | PN ---
DATE OF SERVICE: 07/19/2016 CHIEF COMPLAINT: Grand mal seizure disorder. HISTORY OF PRESENT ILLNESS: This gentleman is awake and alert. He is to be moved out to a regular floor today. He can probably go back to the retirement. PHYSICAL EXAMINATION: CHEST: Clear. CARDIAC: Normal. ABDOMEN: Soft, nontender. NEUROLOGICAL: He is fully awake and alert and back to his usual status. IMPRESSION: Grand mal seizure with postictal depression. PLAN: Moved to floor and possibly back to the retirement today.
[2016-07-19] MEDS: CLOTRIMAZOLE 1% CREAM 15 GM TUBE TOPICAL SCH (21:19)
[2016-07-19] MEDS: DONEPEZIL 10 MG TAB PO SCH (21:20)
[2016-07-19] MEDS: FLUTICASONE 50MCG/SPRAY NASAL 16GM EA NOSTRIL SCH (21:20)
[2016-07-19] MEDS: TOPIRAMATE 100 MG TAB PO SCH (21:25)
[2016-07-19] MEDS: PRAVASTATIN SODIUM 40 MG TAB PO SCH (21:25)
[2016-07-19] MEDS: TERAZOSIN 1 MG CAP PO SCH (21:25)
[2016-07-19] MEDS ORDERED: Potassium Replacement Protocol 1 EACH MISC MISCELLANE PRN (22:39)
[2016-07-20] MEDS: POTASSIUM CHLORIDE 10 MEQ in WATER FOR INJECTION 1 100ML.BAG IVPB SCH ×4 (00:47→06:47)
[2016-07-20] MEDS: SODIUM CHLORIDE 0.9% 1,000 ML IV SCH ×2 (01:51→11:16)
[2016-07-20 04:43] LABS: ALT 46 U/L (21-72); AST 62 U/L (17-59); Alkaline Phosphatase 87 U/L (38-126); Anion Gap 9 mmol/L; Blood Urea Nitrogen 17 mg/dL (9-20); Calcium 8.4 mg/dL (8.4-10.2); Carbon Dioxide 24 mmol/L (22-30); Chloride 110 mmol/L (98-107); Glucose 95 mg/dL (74-99); Magnesium 2.1 mg/dL (1.6-2.3); Non-African American GFR(MDRD) >60 (>60 ml/min/1.73 sqM); Potassium 3.2 mmol/L (3.5-5.1); Sodium 143 mmol/L (137-145); Total Bilirubin 0.9 mg/dL (0.2-1.3); Total Protein 5.6 g/dL (6.3-8.2)
[2016-07-20] MEDS ORDERED: PANTOPRAZOLE 40 MG TABLET PO SCH (07:30)
[2016-07-20] MEDS: VALPROATE SODIUM 500 MG in SODIUM CHLORIDE 0.9% 50 ML IVPB SCH (07:39)
[2016-07-20] MEDS: TOPIRAMATE 100 MG TAB PO SCH (07:40)
[2016-07-20] MEDS: HEPARIN SODIUM,PORCINE 5,000 UNIT/ML 1 ML VIAL SQ SCH (07:40)
[2016-07-20] MEDS: HYDROCHLOROTHIAZIDE 25 MG TAB PO SCH (07:41)
[2016-07-20] MEDS: PARoxetine 20 MG TAB PO SCH (07:41)
[2016-07-20] MEDS: METOPROLOL TARTRATE 12.5 MG TAB PO SCH (07:42)
[2016-07-20] MEDS: PIPERACILLIN-TAZOBACTAM 3.375 GM in DEXTROSE/WATER 1 50ML.BAG IVPB SCH ×2 (07:42→09:07)
[2016-07-20] MEDS: ALLOPURINOL 300 MG TAB PO SCH (07:42)
[2016-07-20 08:06] VITALS: BP 102/67; RESP 19; TEMP 98.7
[2016-07-20] MEDS: BUDESONIDE 1 MG/2 ML NEBU INHALATION SCH (08:50)
[2016-07-20] MEDS: IPRATROPIUM-ALBUTEROL 3 ML NEB INHALATION SCH ×2 (08:50→11:34)
[2016-07-20 08:58] VITALS: PULSE 64
[2016-07-20] MEDS: HYDROcodone/APAP 10-325MG 1 EACH TAB PO SCH (09:16)
[2016-07-20] MEDS: POTASSIUM CHLORIDE ER 20 MEQ TAB.ER PO SCH ×2 (11:15→12:51)
--- NOTE | 2016-07-20 11:15 | P.PN ---
Subjective This is a 61-year-old male patient being evaluated and examined today in the intensive care unit. This patient is a resident of [facility] and he had a witnessed seizure that lasted about 20 minutes on and off per the medical [place] staff. When EMS arrived the patient was still seizing and they gave the patient 10 mg of Versed. Upon arrival to the emergency room and patient was sleeping with snoring respirations but was able to maintain his airway when sitting up. The patient's oxygen saturations were maintained around 90% on 2 L. The patient's further became apneic a few hours later while in the emergency room and was roughly in the low 80s on nasal cannula. In nonrebreather mask was applied to the patient and there was no change in oxygen saturation therefore the patient was sedated and intubated. The patient was a difficult intubation as well as a difficult Cid insertion. Upon examination the patient is resting in bed. Patient is on 2 L of oxygen via nasal cannula. Does have a productive cough with clear sputum. Urine output has been good. Patient had a good appetite. Patient is hemodynamically stable. She can be discharged back to the [facility] facility in the near future. Objective - Vital Signs Vital signs: Vital Signs Temp 98.7 F 07/20/16 07:00 Pulse 64 07/20/16 08:58 Resp 19 07/20/16 07:00 BP 102/67 07/20/16 07:00 Pulse Ox 94 L 07/20/16 07:00 Intake & Output 07/19/16 07/20/16 07/20/16 18:59 06:59 18:59 Intake Total 1270.0 140 Output Total 395 Balance 875.0 140 Intake: IV 490 Magnesium Sulfate-D5w Pmx 200 1 gm In Dextrose/Water 1 100ml.bag @ 100 mls/hr IVPB Q1H [facility] Rx#: [id number] Sodium Chloride 0.9% 1, 290 000 ml @ 100 mls/hr IV . Q10H [facility] Rx#:[id number] Intake, IV Titration 300.0 Amount Piperacillin-Tazobactam 3 50.0 .375 gm In Dextrose/Water 1 50ml.bag @ 12.5 mls/hr IVPB Q8HR [facility] Rx#: [id number] Vancomycin 1,500 mg In 250 Sodium Chloride 0.9% 250 ml @ 125 mls/hr IVPB Q12H [facility] Rx#:[id number] Oral 480 140 Output: Urine 395 Other: Voiding Method Incontinent Incontinent # Voids 1 1 - Exam GENERAL EXAM: Alert, comfortable in no apparent distress. HEAD: Normocephalic. EYES: Normal reaction of pupils, equal size. NOSE: Clear with pink turbinates. THROAT: No erythema or exudates. NECK: No masses, no JVD. CHEST: No chest wall deformity. LUNGS: Equal air entry with no crackles, wheeze, rhonchi or dullness. Bases diminished CVS: S1 and S2 normal with no audible mumurs, regular rhythm. ABDOMEN: No hepatosplenomegaly, normal bowel sounds, no guarding or rigidity. EXTREMITIES: Trace edema noted, pedal pulses palpable. SKIN: No rashes CENTRAL NERVOUS SYSTEM: No focal deficits, tone is normal in all 4 extremities. - Labs CBC & Chem 7: 07/19/16 05:23 07/20/16 04:00 Labs: Abnormal Lab Results - Last 24 Hours (Table) 07/19/16 07/20/16 Range/Units 18:36 04:00 Potassium 3.0 L* 3.2 L (3.5-5.1) mmol/L Chloride 110 H (98-107) mmol/L AST 62 H (17-59) U/L Total Protein 5.6 L (6.3-8.2) g/dL Albumin 2.8 L (3.5-5.0) g/dL Microbiology - Last 24 Hours (Table) 07/18/16 00:30 Blood Culture - Preliminary Blood No Growth after 48 hours 07/16/16 18:59 Blood Culture - Preliminary Blood No Growth after 72 hours Assessment and Plan Plan: Assessment Acute hypoxic respiratory failure Left lower lobe pneumonia suspect mixed bacterial Mental status changes Status Epilepticus Generalized seizures Urinary tract infection Elevated troponins, likely related to seizures. History of strokes with left-sided weakness History of seizures History of Hydrocephalus with shunt Plan Patient could be cleared for discharge from a pulmonary standpoint back to the [facility] facility. patient has remained hemodynamically stable. Medications have been reviewed and will be continued as ordered. Continue the current nebulizer treatments. IV antibiotics as ordered. Patient will be extubated to 2 L via nasal cannula. Supplemental oxygen to maintain oxygen saturations greater than 92%. Continue with pulmonary hygiene, nebulizer treatments, and supportive care. Infectious disease on consult. Neurology on consult. GI and DVT prophylaxis. Seizure precautions in place. We will continue to monitor labs/ results and adjust treatment as necessary. I performed an examination of the patient and discussed their management with the nurse practitioner. I have reviewed the nurse practitioner's note and agree with the documented findings and plan of care.
--- NOTE | 2016-07-20 11:24 | P.DS ---
Providers Date of admission: 07/16/16 17:04 Expected date of discharge: 07/20/16 Attending physician: Sedrick Banda Consults: 07/16/16 18:36 Consult Physician Routine Consulting Provider: Quinton Watters Consult Reason/Comments: Respiratory failure Do you want consulting provider notified?: Already Contacted 07/16/16 21:45 Consult Physician Routine Consulting Provider: Benita Evans Consult Reason/Comments: seizures Do you want consulting provider notified?: Yes, Notify in am 07/17/16 10:27 Consult Physician Urgent Consulting Provider: Marcos He Consult Reason/Comments: uti abx Do you want consulting provider notified?: Yes Primary care physician: Sedrick Banda [facility] Course: Patient's initial presentation was from the [facility] in [place] where EMS were called when care providers noted the patient was experiencing seizure activity. Upon arrival the EMS noted the patient was having a generalized tonic clonic seizure. It lasted about 20 minutes according to the nursing staff. Patient was given IV Versed which did stop the seizures. The patient arrived to the emergency room patient was drowsy likely due to the Versed and postictal state. It is noted in the emergency room patient was hypoxic experiencing acute hypoxic respiratory failure needed to be intubated and admitted to the intensive care unit for closer monitoring. A CAT scan of the brain was done it showed generalized atrophy which was felt to be unchanged when compared to a prior study in 2016. Patient's serum Depakote level was borderline therapeutic at 56.4 . 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 Additionally the patient was noted to be febrile temp was 100.5. Chest x-ray noted a patchy left lower lobe pneumonia with a positive UA. Currently patients being followed by infectious disease and pulmonology service Patient was able to be transferred out of the intensive care unit to a [facility] bed. Neurology recommended that the Topamax be increased 100 mg twice a day. The Depakote level on the was 55.6 they recommended increasing the Depakote 500 mg twice a day as well. Patient has not had any further seizure-like activity. Patient was felt to be back to baseline appropriate to transfer [facility] blood urine and sputum cultures were negative. Infectious disease recommends patient be discharged on Augmentin for 10 day course Impression discharge diagnosis prior to admission episode of generalized toxic clonic seizure lasting about 20 minutes consistent with status epilepticus Present on admission acute hypoxic respiratory failure likely medication induced versed prior to arrival with acute seizure activity Present on admission leukocytosis febrile suspect sepsis multifactorial left lower lobe pneumonia mixed bacteria with a urinary tract infection History of a seizure disorder Present on admission Depakote level borderline therapeutic Hydrocephalus history of OPTICAL MANUFACTURING 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 Lina Manley nurse practitioner acting as a scribe for dr banda. Plan - Discharge Summary New Discharge Prescriptions: Amoxicillin/Potassium Clav [Augmentin 875-125 Tablet] 1 tab PO Q12HR #20 tab Divalproex Sodium [Depakote Sprinkle] 500 mg PO BID #240 HYDROcodone/APAP 10-325MG [[place] 10-325] 1 tab PO BID@0900,2100 #60 Ipratropium-Albuterol Nebulize [Duoneb 0.5 mg-3 mg/3 ml Soln] 3 ml INHALATION RT -QID #120 neb Topiramate [Topamax] 100 mg PO BID #60 tab Discharge Medication List Fluticasone Nasal [place] [Flonase Nasal [place]] 1 spray EA NOSTRIL HS 08/21/14 [ History] Glycerin/Propylene Glycol [Artificial Tears Drops] 1 drop BOTH EYES BID PRN [History] Hydrochlorothiazide 25 mg PO DAILY 08/21/14 [History] Hydrocodone/Acetaminophen [Hydrocodon-Acetaminophn 10-325] 1 tab PO Q6H PRN [History] [place]-3 Fatty Acids [[place]-3] 1,000 mg PO BID 08/21/14 [History] Pravastatin Sodium 40 mg PO HS 08/21/14 [History] Sennosides-Docusate Sodium [Senokot-S] 2 tab PO DAILY PRN 08/21/14 [History] Terazosin [Hytrin] 1 mg PO HS 08/21/14 [History] Allopurinol [Zyloprim] 300 mg PO DAILY 07/16/16 [History] Magnesium Hydroxide [Milk of Magnesia] 2,400 mg PO DAILY PRN 07/16/16 [History] Metoprolol Tartrate [Lopressor] 12.5 mg PO BID 07/16/16 [History] PARoxetine [Paxil] 20 mg PO DAILY 07/16/16 [History] Rivastigmine Tartrate [Exelon] 3 mg PO BID 07/16/16 [History] Tolnaftate [Tinactin] 1 applic TOPICAL HS 07/16/16 [History] Amoxicillin/Potassium Clav [Augmentin 875-125 Tablet] 1 tab PO Q12HR #20 tab [Rx] Divalproex Sodium [Depakote Sprinkle] 500 mg PO BID #240 07/20/16 [Rx] HYDROcodone/APAP 10-325MG [[place] 10-325] 1 tab PO BID@0900,2100 #60 07/20/16 [ Rx] Ipratropium-Albuterol Nebulize [Duoneb 0.5 mg-3 mg/3 ml Soln] 3 ml INHALATION RT -QID #120 neb 07/20/16 [Rx] Topiramate [Topamax] 100 mg PO BID #60 tab 07/20/16 [Rx] Follow up Appointment(s)/Referral(s): Sedrick Banda MD [Primary Care Provider] - 1-2 days [facility], [NON-STAFF] - As Needed Quinton Watters MD [STAFF PHYSICIAN] - 1 Week Ambulatory/Diagnostic Orders: Comprehensive Metabolic Panel [LAB.AMB] Time Frame: 07/26/16, Location: Determined By Patient Discharge Disposition: TRANSFER TO SNF/ECF
[2016-07-20 11:36] VITALS: BMI 34.7
[2016-07-20 11:36] LABS: Anion Gap 10 mmol/L; Blood Urea Nitrogen 19 mg/dL (9-20); Calcium 8.5 mg/dL (8.4-10.2); Carbon Dioxide 22 mmol/L (22-30); Chloride 114 mmol/L (98-107); Glucose 112 mg/dL (74-99); Non-African American GFR(MDRD) >60 (>60 ml/min/1.73 sqM); Potassium 3.5 mmol/L (3.5-5.1); Sodium 146 mmol/L (137-145)
--- NOTE | 2016-07-20 16:55 | PN ---
DATE OF SERVICE: 07/20/2016 REASON FOR FOLLOWUP: Aspiration pneumonia and UTI. INTERVAL HISTORY: The patient is afebrile, has been breathing comfortably. He did have some congested cough but did not bring up any sputum. No chest pain. No abdominal pain. No diarrhea. On examination, blood pressure is 102/67 with a pulse of 62, temperature 98.7. He is 94% on 2 L nasal cannula. General description is a middle-aged male lying in bed in no distress. RESPIRATORY SYSTEM: Unlabored breathing. Clear to auscultation anteriorly. HEART: S1, S2. Regular rate and rhythm. ABDOMEN: Soft. No tenderness. LABS: BUN of 19, creatinine 0.80. Blood and urine cultures so far negative. Sputum was usual respiratory yahaira. DIAGNOSTIC IMPRESSION AND PLAN: Patient with a component of aspiration pneumonia, also with a urinary tract infection. Patient did show overall improvement. Culture is negative for any resistant pathogen. Can be switched over the Augmentin 875 b.i.d. for another 10 days to finish the course of therapy. Continue supportive care.
--- NOTE | 2016-07-20 17:31 | PN ---
DATE OF SERVICE: 07/20/2016 CHIEF COMPLAINT: Grand mal seizure, postictal depression and encephalopathy. HISTORY OF PRESENT ILLNESS: This gentleman is doing very well. He is back to his normal neurologic state. He is wide awake and alert but confused. PHYSICAL EXAMINATION: HEENT: Normal. CHEST: Clear. CARDIAC: Normal. ABDOMEN: Soft, nontender. IMPRESSION: 1. Grand mal seizure. 2. Postictal depression. 3. 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 PLAN: He can probably [facility] back to the [facility], today. This will be arranged by the nurse practitioner.
== END 2016-07-20 14:04 | DRG 208 ==
LOC: EC 13:45 → 6SEL 17:04 → 6ICU 19:53 → 4MS4W 07-19 13:26
PROVIDERS: ADMIT Family Medicine; ATTEND Family Medicine
PROC: 5A1945Z Respiratory Ventilation, 24-96 Consecutive Hours (ICD-10-PCS; principal; 2016-07-16)
PROC: 0BH17EZ Insertion of Endotracheal Airway into Trachea, Via Natural or Artificial Opening (ICD-10-PCS; 2016-07-16)
DX: J96.01 Acute respiratory failure with hypoxia (principal); J69.0 Pneumonitis due to inhalation of food and vomit; A41.9 Sepsis, unspecified organism; G93.40 Encephalopathy, unspecified; J15.9 Unspecified bacterial pneumonia; J90 Pleural effusion, not elsewhere classified; G91.9 Hydrocephalus, unspecified; D69.6 Thrombocytopenia, unspecified; I69.354 Hemiplegia and hemiparesis following cerebral infarction affecting left non-dominant side; N39.0 Urinary tract infection, site not specified; F03.90 Unspecified dementia, unspecified severity, without behavioral disturbance, psychotic disturbance, mood disturbance, and anxiety; G40.401 Other generalized epilepsy and epileptic syndromes, not intractable, with status epilepticus; F20.9 Schizophrenia, unspecified; D63.8 Anemia in other chronic diseases classified elsewhere; T42.4X5A Adverse effect of benzodiazepines, initial encounter; E78.5 Hyperlipidemia, unspecified; F09 Unspecified mental disorder due to known physiological condition; R32 Unspecified urinary incontinence; I10 Essential (primary) hypertension; F41.9 Anxiety disorder, unspecified; F32.89 Other specified depressive episodes; Z78.1 Physical restraint status; Z98.2 Presence of cerebrospinal fluid drainage device; Z79.899 Other long term (current) drug therapy; Y92.009 Unspecified place in unspecified non-institutional (private) residence as the place of occurrence of the external cause
CPT/HCPCS: 31500; 36415; 36600; 43753; 51702; 70450; 71010; 71020; 80048; 80053; 80164; 80201; 80202; 81001; 82805; 83605; 83690; 83735; 83880; 84100; 84132; 84484; 85025; 87040; 87070; 87086; 87205; 93005; 94002; 94003; 94640; 95816; 96361; 96365; 96366; 96367; 99152; 99285

== ENCOUNTER 2018-01-21 03:28 | Emergency (ER) | payer OTHER ==
[2018-01-21] MEDS ORDERED: SODIUM CHLORIDE 0.9% 500 ML 500 ML IV SCH (03:45)
--- NOTE | 2018-01-21 04:43 | CT ---
EXAMINATION TYPE: CT angio thor/abd pel aorta DATE OF EXAM: 01/21/2018 COMPARISON: None HISTORY: aneurysm CT DLP: 1925.7 mGycm. Automated Exposure Control for Dose Reduction was Utilized. CONTRAST: CT scan of the thorax, abdomen and pelvis is performed with IV Contrast, patient injected with 100 mL of Isovue 370. Multiple axial sections were obtained from the thoracic inlet to the mid pelvis without and with IV c ontrast. There are 3-D post processed images. FINDINGS: There is some coarse interstitial reticular infiltrate at the lung bases. Heart size is normal. There is no pericardial effusion. There is no pleural effusion. There is mild atelectasis at the lung base s. Thoracic aorta is atheromatous. Ascending aorta measures 3.8 cm. There is no pericardial effusion. Th ere are no hilar masses. There is no mediastinal adenopathy. The celiac artery and superior mesenteric artery are patent. There is a large lower abdominal aortic aneurysm which extends from the level of the renal arteries to the aortic bifurcation. Aneurysm is 13 .7 cm in length. The diameter is 9.1 x 8.4 cm. There is extensive thrombus within the aneurysm. This measures up to 4 cm. I see no contrast extravasation. There is no fluid around the aortic aneurysm. There is patency of the common internal and external iliac arteries bilaterally. There is atheroscler otic plaque and some mild aneurysmal change in the right internal iliac artery. The right common sebastien c artery measures 2 cm. Left common iliac artery measures 1.6 cm. There is no retroperitoneal adenopathy. Liver shows no focal defect. There is no evidence of splenic mass. There is no pancreatic mass. There is patency of the renal arteries. Gallbladder appears normal . Bile ducts are not dilated. There is 2.5 cm cortical cyst posterior right kidney. I see no evidence of free air. There is no ascites. There is no hydronephrosis. There is no evidence of free fluid in the pelvis. There is no sign of a bowel obstruction. There is subcutaneous density over the left post erior pelvis. IMPRESSION: Large lower abdominal aortic aneurysm as above. No evidence of leakage. Aneurysm measures up to 9.1 c m in diameter. There is noted high attenuation in the subcutaneous fat over the left posterior pelvis consistent wit h large subcutaneous hematoma and bruising. This area measures 11 x 4 cm. The lower extent of this is not evaluated.
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
[2018-01-21 04:51] LABS: Hypochromasia Slight; MCH 29.5 pg (25.0-35.0); MCHC 31.3 g/dL (31.0-37.0); MCV 94.3 fL (80.0-100.0); Mean Platelet Volume 8.2; Platelet Count 109 k/uL (150-450); RBC 5.09 m/uL (4.30-5.90); RDW 15.1 % (11.5-15.5); WBC 14.7 k/uL (3.8-10.6)
[2018-01-21] MEDS ORDERED: ETOMIDATE 2 MG/ML 10 ML VIAL IVP STA (04:54)
[2018-01-21] MEDS ORDERED: SUCCINYLCHOLINE CHLORIDE VIAL 200 MG/10 ML VIAL IV STA (04:54)
[2018-01-21] MEDS ORDERED: MIDAZOLAM 1 MG/ML 5 ML VIAL IV STA (04:54)
[2018-01-21] MEDS ORDERED: fentaNYL (PF) 50 MCG/ML 2 ML AMP IV STA (04:54)
[2018-01-21 05:04] LABS: INR 1.5 (<1.2); Partial Thromboplastin Time 31.7 sec (22.0-30.0); Prothrombin Time 13.9 sec (9.0-12.0)
--- NOTE | 2018-01-21 05:06 | XR ---
EXAMINATION TYPE: XR chest 1V portable DATE OF EXAM: 01/21/2018 COMPARISON: 07/19/2016 HISTORY: Check tube placement TECHNIQUE: Single frontal view of the chest is obtained. FINDINGS: Endotracheal tube is 4.5 cm from the brooke. Nasogastric tube appears to be in good positi on with the tip over the gastric fundus. There is right jugular catheter with the tip in the lower garcia perior vena cava. There is no sign of pneumothorax. There is no heart failure. There is some mild int erstitial density in the right lower lobe. I see no pleural effusion. There are chest leads. IMPRESSION: There is significant improved aeration of the right lung base compared to old exam. No h eart failure.
[2018-01-21 05:09] LABS: Ionized Calcium 4.9 mg/dL (4.5-5.3)
[2018-01-21 05:20] LABS: Albumin 3.9 g/dL (3.5-5.0); Potassium 4.1 mmol/L (3.5-5.1); Total Protein 7.8 g/dL (6.3-8.2)
[2018-01-21 05:35] VITALS: TEMP 99.3
[2018-01-21 05:56] VITALS: BP 108/84; PULSE 86; RESP 13
[2018-01-21 05:57] LABS: Creatine Kinase MB 0.5 ng/mL (0.0-2.4)
[2018-01-21] MEDS ORDERED: fentaNYL (PF) 2,500 MCG in SODIUM CHLORIDE 0.9% 200 ML IV SCH (06:00)
[2018-01-21 06:09] LABS: Troponin I 0.218 ng/mL (0.000-0.034)
[2018-01-21 06:10] LABS: Appearance,Urine Turbid (Clear); Bacteria,Urine Moderate /hpf; Bilirubin,Urine Negative (Negative); Blood,Urine Moderate (Negative); Color,Urine Yellow; Glucose,Urine (UA) Negative (Negative); Ketones,Urine Negative (Negative); Leukocyte Esterase,Urine Large (Negative); Mucus,Urine Moderate /hpf; Nitrite,Urine Negative (Negative); Protein,Urine 3+ (Negative); RBC,Urine 48 /hpf (0-5); Specific Gravity,Urine 1.032 (1.001-1.035); WBC,Urine >182 /hpf (0-5)
== END 2018-01-21 06:10 | disposition short-term general hospital (02) ==
LOC: EC 03:28
DX: I71.4 Abdominal aortic aneurysm, without rupture (principal); R40.2432 Glasgow coma scale score 3-8, at arrival to emergency department; R23.8 Other skin changes; R00.0 Tachycardia, unspecified; R06.82 Tachypnea, not elsewhere classified; I95.9 Hypotension, unspecified; G91.9 Hydrocephalus, unspecified; E78.5 Hyperlipidemia, unspecified; I10 Essential (primary) hypertension; I69.354 Hemiplegia and hemiparesis following cerebral infarction affecting left non-dominant side; F31.9 Bipolar disorder, unspecified; F41.9 Anxiety disorder, unspecified; Z79.51 Long term (current) use of inhaled steroids; Z98.2 Presence of cerebrospinal fluid drainage device; Z79.899 Other long term (current) drug therapy; Z87.820 Personal history of traumatic brain injury
CPT/HCPCS: 36415; 86900; 86901; 80051; 80053; 82330; 82550; 82553; 83605; 84484; 85027; 85384; 85610; 85730; 86850; 86920; 81001; 87040; 87086; 71045; 71275; 74174; 99291; 99292; 36556; 31500; P9016; J0330; J2250; J3010 ×2; Q9967; 87077; 87186